=== PATIENT | male | born 1975 | race Caucasian/White ===

== ENCOUNTER 2023-05-09 18:40 | Emergency (ER) | payer OTHER, SELFPAY ==
[2023-05-09 18:42] VITALS: BP 140/90; PULSE 86; TEMP 36.7; O2SAT 100; BMI 25.7
--- NOTE | 2023-05-09 19:06 | CT_ITS ---
The [address] [address] Patient Name: RUFINO JOHN MRN: [id number] date: 1975 Sex: M Assigned Patient Location: ER Current Patient Location: ER Accession/Order Number: [id number] Exam Date: 05/09/2023 19:27 Report Date: 05/09/2023 20:05 At the request of: JEANA LEE Procedure: CT abdomen pelvis wo con EXAM: CT abdomen pelvis wo con CLINICAL INDICATION: left flank pain, r/o stone COMPARISON: None. TECHNIQUE: Axial CT of the abdomen, and pelvis was performed from the top of the hemidiaphragms to the inferior osseous pelvis without intravenous contrast. 2-D reformats were obtained. Automatic exposure control radiation dose reduction technology was utilized. FINDINGS: Evaluation is limited by lack of intravenous contrast. Visualized portion of the lung bases are unremarkable. Hypoattenuating hepatic lesions, some of which are compatible with simple cysts and others which are too small to accurately characterize. 1.1 cm proximal to mid left ureteral calculus with associated moderate left hydroureteronephrosis. The spleen, right kidney, adrenal glands and pancreas are unremarkable. Gallbladder present. No abdominal aortic aneurysm. Borderline enlarged left sided mesenteric lymph node measures up to 0.9 cm, likely reactive. No pathologically enlarged lymph nodes, free fluid, or free air. Diverticulosis coli without evidence for diverticulitis. The bowel is without evidence of obstruction or adjacent inflammatory changes. Bladder unremarkable. No suspicious osseous lesions. CT/CT abdomen pelvis wo con IMPRESSION: 1.1 cm proximal to mid left ureteral calculus with associated moderate left hydroureteronephrosis. Electronically authenticated by: PEDRO CRUZ Date: 05/09/2023 20:05
--- NOTE | 2023-05-09 19:06 | ED_ITS ---
HPI - Male Genitourinary General Chief complaint: Abdominal Pain Stated complaint: Flank Pain, Hx-Kidney Stones Time Seen by Provider: 05/09/23 18:58 Source: patient Mode of arrival: walk-in History of Present Illness HPI Narrative: 48-year-old male presents for left flank pain that has had for a week. He has had kidney stones twice before and it feels similar. No gross hematuria fever or vomiting. The pain is moderate to severe and continuous. Related Data Home Medications ?Medication ?Instructions ?Recorded ?Confirmed No Known Home Medications 05/09/23 05/09/23 Previous Rx's ?Medication ?Instructions ?Recorded cephalexin 500 mg capsule 500 mg PO TID 7 days #21 caps 05/09/23 hydrocodone 5 mg-acetaminophen 325 1 tab PO Q6H PRN pain 5 days #20 05/09/23 mg tablet tabs ondansetron 4 mg disintegrating 4 mg PO Q6H PRN nausea and 05/09/23 tablet vomiting #20 tabs tamsulosin 0.4 mg capsule (Flomax) 0.4 mg PO DAILY #7 caps 05/09/23 Allergies Allergy/AdvReac Type Severity Reaction Status Date / Time No Known Drug Allergies Allergy Verified 05/09/23 18:46 Review of Systems ROS Narrative A ten point review of systems is negative except as noted above. Exam Narrative Exam Narrative: Nurses note and vital signs reviewed and patient is not hypoxic. General: The patient appears uncomfortable and he is laying on his right side with his hips and knees flexed. Skin: Warm, dry, no pallor noted. There is no rash noted. Head: Normocephalic, atraumatic Eye: Normal conjunctiva, no drainage Ears, Nose, Mouth, and Throat: oral mucosa is moist. Nares patent. Cardiovascular: Regular Rate and Rhythm Respiratory: Patient is in no distress, no accessory muscle use, lungs are clear to auscultation, no wheezing, rales or rhonchi Back: No bruise rash or CVA tenderness GI: no tenderness to palpation, no masses appreciated. No rebound, guarding, or rigidity noted. Musculoskeletal: The patient has no evidence of calf tenderness, no pitting edema, symmetrical pulses noted bilaterally Neurological: A&O, normal speech Psychiatric: Cooperative Constitutional Vital Signs, click to edit/add: Last Vital Signs Temp 98.0 F 05/09/23 18:42 Pulse 64 05/09/23 19:37 Resp 16 05/09/23 19:37 BP 112/84 05/09/23 19:37 Pulse Ox 98 05/09/23 19:37 O2 Del Method Room Air 05/09/23 19:37 Course Vital Signs Vital signs: Vital Signs Temperature 98.0 F 05/09/23 18:42 Pulse Rate 86 05/09/23 18:42 Respiratory Rate 18 05/09/23 18:42 Blood Pressure 140/90 05/09/23 18:42 Pulse Oximetry 100 05/09/23 18:42 Oxygen Delivery Method Room Air 05/09/23 18:42 Temperature 98.0 F 05/09/23 18:42 Pulse Rate 64 05/09/23 19:37 Respiratory Rate 16 05/09/23 19:37 Blood Pressure 112/84 05/09/23 19:37 Pulse Oximetry 98 05/09/23 19:37 Oxygen Delivery Method Room Air 05/09/23 19:37 MDM - Male Genitourinary MDM Narrative Medical decision making narrative: 11 mm left ureteral stone is found on CAT scan per radiologist. He does not require admission to the hospital at this point and is discharged home. He will follow-up with his urologist. Treatment diagnosis and follow-up were discussed with the patient. Differential Diagnosis Differential diagnosis: Likely urinary tract infection and other (Kidney stone) Lab Data Attestation: I reviewed the patient's lab results. Labs: Lab Results 05/09/23 05/09/23 Range/Units 18:50 20:19 WBC 8.1 (4.0-11.0) 10^3/uL RBC 5.21 (4.70-6.10) 10^6/uL Hgb 16.0 (14.0-18.0) g/dL Hct 47.6 (42.0-54.0) % MCV 91.4 (80.0-94.0) fL MCH 30.7 (25.9-34.0) pg MCHC 33.6 (29.9-35.2) g/dL RDW 11.9 (11.0-15.0) % Plt Count 293 (150-450) 10^3/uL MPV 10.6 (9.5-13.5) fL Neut % (Auto) 67.2 (43.0-75.0) % Lymph % (Auto) 23.8 (20.5-60.0) % [place] % (Auto) 8.0 (1.7-12.0) % Eos % (Auto) 0.6 L (0.9-7.0) % Baso % (Auto) 0.2 (0.2-2.0) % Neut # (Auto) 5.4 (1.4-6.5) 10^3/uL Lymph # (Auto) 1.9 (1.2-3.8) 10^3/uL [place] # (Auto) 0.7 (0.3-0.8) 10^3/uL Eos # (Auto) 0.1 (0.0-0.7) 10^3/uL Baso # (Auto) 0.0 (0.0-0.1) 10^3/uL Abs Immat Gran (auto) 0.02 (0.00-0.03) 10^3/uL Imm/Tot Granulo (auto) 0.2 (0.0-0.5) % Sodium 138 (136-145) mmol/L Potassium 3.7 (3.5-5.1) mmol/L Chloride 102 (98-107) mmol/L Carbon Dioxide 25.1 (21.0-32.0) mmol/L Anion Gap 14.6 BUN 14.0 (7.0-18.0) mg/dL Creatinine 0.96 (0.70-1.30) mg/dL Est GFR ( Amer) >60 (>=60) Est GFR (Non-Af Amer) >60 (>=60) BUN/Creatinine Ratio 14.6 Glucose 86 (74-106) mg/dL Calcium 9.2 (8.5-10.1) mg/dL Urine Color Yellow (YELLOW) Urine Clarity Clear (CLEAR) Urine pH 5.5 (5.0-9.0) Ur Specific [place] >=1.030 A (1.005-1.025) Urine Protein Negative (NEG/TRACE) mg/dL Urine Glucose (UA) Negative (NEGATIVE) mg/dL Urine Ketones 40 A (NEGATIVE) mg/dL Urine Occult Blood Trace-i (NEGATIVE) Urine Nitrite Negative (NEGATIVE) Urine Bilirubin Small A (NEGATIVE) Urine Urobilinogen 0.2 (0.2-1.0) EU/dL Ur Leukocyte Esterase Trace A (NEGATIVE) Urine RBC 0-2 (0-2) #/HPF Urine WBC 2-5 A (NONE SEEN) #/HPF Ur Squamous Epith Cells None seen (NONE/RARE) #/LPF Urine Crystals None seen (None Seen) #/HPF Urine Bacteria Small A (NONE SEEN) #/HPF Urine Casts None seen (NONE SEEN) #/LPF Urine Mucus Moderate A (NONE SEEN) Ur Culture Indicated? Yes Imaging Data CT scan - abdomen: Radiologist's impression: ITS Impressions Abdomen/Pelvis CT 05/09/23 19:06 IMPRESSION: 1.1 cm proximal to mid left ureteral calculus with associated moderate left hydroureteronephrosis. Electronically authenticated by: PEDRO CRUZ Date: 05/09/2023 20:05 Discharge Plan Discharge Stand Alone Forms: Portal Instructions Chief Complaint: Abdominal Pain Clinical Impression: Kidney stone Patient Disposition: Home, Self-Care Time of Disposition Decision: 20:47 Condition: Good Mode of Transportation: Private Vehicle Prescriptions / Home Meds: New hydrocodone-acetaminophen 5-325 mg tablet 1 tab PO Q6H PRN (Reason: pain) 5 Days Qty: 20 0RF cephalexin 500 mg capsule 500 mg PO TID 7 Days Qty: 21 0RF tamsulosin [Flomax] 0.4 mg capsule 0.4 mg PO DAILY Qty: 7 0RF ondansetron 4 mg tablet,disintegrating 4 mg PO Q6H PRN (Reason: nausea and vomiting) Qty: 20 0RF No Action No Known Home Medications Print Language: Yemeni Instructions: Kidney Stones (ED) Additional Instructions: Follow-up with Dr. Hobbs Referrals: Timothy Linares MD [Primary Care Provider] - 1 week
[2023-05-09] MEDS: 0.9 % SODIUM CHLORIDE 1,000 ML 1000 ML IV (19:10)
[2023-05-09] MEDS: KETOROLAC TROMETHAMINE 30 MG/ML VIAL IVP (19:11)
[2023-05-09] MEDS: ONDANSETRON PF 4 MG/2 ML VIAL IV (19:13)
[2023-05-09 19:37] VITALS: BP 112/84; PULSE 64; O2SAT 98
[2023-05-09 19:55] LABS: Basophils Percent Auto 0.2 % (0.2-2.0); Eosinophils Absolute Auto 0.1 10^3/uL (0.0-0.7); Eosinophils Percent Auto 0.6 % (0.9-7.0); Hematocrit 47.6 % (42.0-54.0); Immature Granulocytes Abs Auto 0.02 10^3/uL (0.00-0.03); Immature Granulocytes Pct Auto 0.2 % (0.0-0.5); Lymphocytes Absolute Auto 1.9 10^3/uL (1.2-3.8); Lymphocytes Percent Auto 23.8 % (20.5-60.0); Mean Corpuscular HGB Conc 33.6 g/dL (29.9-35.2); Mean Corpuscular Hemoglobin 30.7 pg (25.9-34.0); Mean Corpuscular Volume 91.4 fL (80.0-94.0); Mean Platelet Volume 10.6 fL (9.5-13.5); Monocytes Absolute Auto 0.7 10^3/uL (0.3-0.8); Neutrophils Absolute Auto 5.4 10^3/uL (1.4-6.5); Neutrophils Percent Auto 67.2 % (43.0-75.0); Platelet Count 293 10^3/uL (150-450); Red Blood Count 5.21 10^6/uL (4.70-6.10); Red Cell Distribution Width 11.9 % (11.0-15.0); White Blood Count 8.1 10^3/uL (4.0-11.0)
[2023-05-09 19:59] LABS: Anion Gap 14.6; BUN Creatinine Ratio 14.6; Calcium 9.2 mg/dL (8.5-10.1); Carbon Dioxide 25.1 mmol/L (21.0-32.0); Chloride 102 mmol/L (98-107); Estimated GFR (African America >60 (>=60); Estimated GFR (Non-African Ame >60 (>=60); Glucose 86 mg/dL (74-106); Potassium 3.7 mmol/L (3.5-5.1); Sodium 138 mmol/L (136-145)
[2023-05-09 20:30] LABS: Bilirubin Urine SMALL (NEGATIVE); Blood Urine TRACE-I (NEGATIVE); Clarity Urine CLEAR (CLEAR); Color Urine YELLOW (YELLOW); Glucose Urine UA NEGATIVE (NEGATIVE); Ketones Urine 40 mg/dL (NEGATIVE); Leukocyte Esterase Urine TRACE (NEGATIVE); Nitrite Urine NEGATIVE (NEGATIVE); Protein Urine NEGATIVE (NEG/TRACE); Specific Gravity Urine >=1.030 (1.005-1.025); Urobilinogen Urine 0.2 EU/dL (0.2-1.0); pH Urine 5.5 (5.0-9.0)
[2023-05-09 20:35] LABS: Urine Microscopic Indicated YES
[2023-05-09 20:37] LABS: Bacteria Urine SMALL #/HPF (NONE SEEN); Cast Seen? NONE SEEN #/LPF (NONE SEEN); Crystals Seen? None Seen #/HPF (None Seen); Mucus Urine MODERATE (NONE SEEN); RBC Urine 0-2 #/HPF (0-2); Squamous Epithelial Cell Urine NONE SEEN #/LPF (NONE/RARE)
[2023-05-09 20:38] LABS: Urine Culture Indicated YES
[2023-05-09 21:18] VITALS: BP 105/66; PULSE 65; TEMP 37; O2SAT 99
[2023-05-09] MEDS: HYDROCODONE/ACET 5-325 MG TABLET 2 TAB PO (21:31)
== END 2023-05-09 21:37 | disposition home or self-care (01) ==
PROVIDERS: Emergency Provider Emergency Medicine; PCP Family Medicine
DX: N20.0 Calculus of kidney (principal)
CPT/HCPCS: 36415; 74176; 80048; 81001; 85025; 87086; 96374; 96375; 99285

== ENCOUNTER 2023-05-13 15:00 | Outpatient (OUT) | payer OTHER, SELFPAY ==
--- NOTE | 2023-05-13 | ECG_ITS ---
The [facility] Test Date: 2023-05-13 Pat Name: RUFINO JOHN Department: Room: - Gender: Male [employer]: : 1975 Requested By: VIKTORIA SOLIS Order Number: [id number] Reading MD: ROJELIO LATIF Measurements Intervals [place] Rate: 79 P: 60 IA: 152 QRS: 83 QRSD: 84 T: 79 QT: 378 QTc: 434 Interpretive Statements SINUS RHYTHM No previous ECG available for comparison Electronically Signed On 05-14-2023 6:55:44 EDT by ROJELIO LATIF
[2023-05-13 15:42] LABS: Partial Thromboplastin Time 29.8 sec (22.3-36.2); Prothrombin Time 10.6 sec (9.0-11.6)
== END 2023-05-13 15:01 | disposition home or self-care (01) ==
LOC: CARD 15:01
PROVIDERS: PCP Family Medicine; Visit Provider Urology
DX: N20.1 Calculus of ureter (principal); N13.30 Unspecified hydronephrosis; R10.32 Left lower quadrant pain
CPT/HCPCS: 36415; 85610; 85730; 93005

== ENCOUNTER 2023-05-22 16:05 | Outpatient (OUT) | payer OTHER, SELFPAY ==
--- NOTE | 2023-05-22 16:12 | XR_ITS ---
The [address] [address] Patient Name: RUFINO JOHN MRN: [id number] date: 1975 Sex: M Assigned Patient Location: [facility] Current Patient Location: Accession/Order Number: [id number] Exam Date: 05/22/2023 16:18 Report Date: 05/25/2023 07:24 At the request of: VIKTORIA SOLIS Procedure: XR abdomen 1V EXAMINATION: XR abdomen 1V HISTORY: Kidney Stone N20.0 COMPARISON: 05/09/2023 FINDINGS: KIDNEY/URETER - RIGHT: No visible renal or ureteral calcifications. KIDNEY/URETER - LEFT: Nephrolithiasis. Normally positioned ureteral stent PELVIS: No visible ureteral calcifications. Any visible calcifications favor phleboliths. BOWEL: No abnormal dilation or deviation. BONES: No acute abnormality. OTHER: Negative. No abnormal gaseous collections. XR/XR abdomen 1V IMPRESSION: Left nephrolithiasis and ureteral stent Electronically authenticated by: IRMA MUÑIZ Date: 05/25/2023 07:24
== END 2023-05-22 16:06 | disposition home or self-care (01) ==
PROVIDERS: PCP Family Medicine; Visit Provider Urology
DX: N20.0 Calculus of kidney (principal)
CPT/HCPCS: 74018

== ENCOUNTER 2023-08-17 09:50 | Outpatient (OUT) | payer OTHER, SELFPAY ==
[2023-08-17 10:50] LABS: Calcium 9.1 mg/dL (8.5-10.1); Carbon Dioxide 28.5 mmol/L (21.0-32.0); Chloride 104 mmol/L (98-107); Estimated GFR (African America >60 (>=60); Estimated GFR (Non-African Ame >60 (>=60); Phosphorus 4.3 mg/dL (2.6-4.7); Sodium 141 mmol/L (136-145); Uric Acid 4.4 mg/dL (3.5-7.2)
[2023-08-17 11:23] LABS: Calcium Urine Random 17.8 mg/dL (5.1-21.0); Creatinine Urine Random 77.88 mg/dL (20.00-300.00); Sodium Urine Random 80 mmol/L (30-90)
[2023-08-17 11:26] LABS: Calcium 24 Hour Urine 378.3 mg/24hr (100.0-300.0); Creatinine 24 Hour Urine 1654.95 mg/24 hr (1000.0-2000.00); Sodium 24 Hour Urine 170 mmol/24h (40-220); Total Volume 24 Hour Urine 2125 mL/24hr
[2023-08-18 04:07] LABS: Magnesium, U 4.2 mg/dL (Not Estab.); Magnesium,Urine 24hr 89.3 mg/24 hr (12.0-293.0); Phosphorus, Urine 28.9 mg/dL (Not Estab.); Phosphorus,Urine 24h 614 mg/24 hr (390-1425); Uric Acid, Urine 20.1 mg/dL (Not Estab.); Uric Acid,Urine 24hr 427.1 mg/24 hr (197.2-1078.7)
[2023-08-18 14:13] LABS: PTH, Intact 23 pg/mL (15-65)
[2023-08-19 17:09] LABS: Citric Acid, U, 24hr 514 mg/24 hr (320-1240); Citric Acid, Urine 242 mg/L (Undefined); Oxalates, Urine 7 mg/L (Undefined); Oxalates, Urine 24hr 15 mg/24 hr (7-44)
== END 2023-08-17 09:51 | disposition home or self-care (01) ==
LOC: LAB 09:50
PROVIDERS: PCP Family Medicine; Visit Provider Urology
DX: N20.0 Calculus of kidney (principal)
CPT/HCPCS: 36415; 82310; 82340; 82374; 82435; 82507; 82565; 82570; 83735; 83945; 83970; 84100; 84105; 84295; 84300; 84520; 84550; 84560

== ENCOUNTER 2023-09-02 08:21 | Outpatient (OUT) | payer OTHER, SELFPAY ==
--- NOTE | 2023-09-02 08:26 | XR_ITS ---
The [address] [address] Patient Name: RUFINO JOHN MRN: [id number] date: 1975 Sex: M Assigned Patient Location: [facility] Current Patient Location: Accession/Order Number: [id number] Exam Date: 09/02/2023 08:30 Report Date: 09/03/2023 07:06 At the request of: VIKTORIA SOLIS Procedure: XR abdomen 1V EXAMINATION: XR abdomen 1V HISTORY: Kidney Stone N20.0 COMPARISON: 05/22/2023 FINDINGS: KIDNEY/URETER - RIGHT: No visible renal or ureteral calcifications. KIDNEY/URETER - LEFT: No visible renal or ureteral calcifications. PELVIS: No visible ureteral calcifications. Any visible calcifications favor phleboliths. BOWEL: No abnormal dilation or deviation. BONES: No acute abnormality. OTHER: Negative. No abnormal gaseous collections. XR/XR abdomen 1V IMPRESSION: No definite urinary tract calculi Electronically authenticated by: IRMA MUÑIZ Date: 09/03/2023 07:06
== END 2023-09-02 08:22 | disposition home or self-care (01) ==
LOC: RAD 08:22
PROVIDERS: PCP Family Medicine; Visit Provider Urology
DX: N20.0 Calculus of kidney (principal)
CPT/HCPCS: 74018

== ENCOUNTER 2023-10-16 14:29 | Outpatient (OUT) | payer OTHER, SELFPAY ==
[2023-10-16 16:35] LABS: Anion Gap 10.2; Carbon Dioxide 28.9 mmol/L (21.0-32.0); Chloride 103 mmol/L (98-107); Potassium 4.1 mmol/L (3.5-5.1); Sodium 138 mmol/L (136-145)
== END 2023-10-16 14:30 | disposition home or self-care (01) ==
PROVIDERS: PCP Family Medicine; Visit Provider Urology
DX: N20.0 Calculus of kidney (principal); R82.994 Hypercalciuria
CPT/HCPCS: 36415; 80051

== ENCOUNTER 2024-06-24 19:00 | Emergency (ER) | payer OTHER, SELFPAY ==
[2024-06-24 19:05] VITALS: BP 144/95; PULSE 88; TEMP 37.1; O2SAT 99; BMI 24.4
--- NOTE | 2024-06-24 19:26 | ED_ITS ---
HPI HPI - General Adult General Chief complaint: Abdominal Pain Stated complaint: constipated Time Seen by Provider: 06/24/24 19:21 Source: patient Mode of arrival: walk-in Limitations: no limitations History of Present Illness HPI narrative: presents complaining of constipation. States did have BM today but very small. No nausea or vomiting. Occ abdominal cramping. No urinary symptoms or fever. States he has past history of kidney stones and adjusted his diet and believes this is why he is constipated Related Data Home Medications ?Medication ?Instructions ?Recorded ?Confirmed No Known Home Medications 05/09/2306/09 Previous Rx's ?Medication ?Instructions ?Recorded cephalexin 500 mg capsule 500 mg PO TID 7 days #21 cap s 05/09/23 hydrocodone 5 mg-acetaminophen 325 1 tab PO Q6H PRN pa in 5 days #20 05/09/23 mg tablet tabs ondansetron 4 mg disintegrating 4 mg PO Q6H PRN nausea and 05/09/23 tablet vomiting #20 tabs tamsulosin 0.4 mg capsule (Flomax) 0.4 mg PO DAILY #7 caps 05/09/23 Allergies Allergy/AdvReac Type Severity Reaction Status Date / Time No Known Drug Allergies Allergy Verified 06/24/24 19:08 Opioid HPI Opioid Management Most Recent Opioid Data: Last Pain Scale 5 05/09/23, 19:38 Review of Systems ROS Status of ROS 10 or more systems reviewed and unremark able except as noted in history and below Exam Constitutional Vital Signs, click to edit/add: Last Vital Signs Temp 98.8 F 06/24/24 19:05 Pulse 88 06/24/24 19:05 Resp 16 06/24/24 19:05 BP 144/95 H 06/24/24 19:05 Pulse Ox 99 06/24/24 19:05 O2 Del Method Room Air 06/24/24 19:05 Common normals: no apparent distress, average body habitus, oriented x3, no limitations, healthy appearing, alert and well nourished [facility] Common normals: normocephalic and head/scalp atraumatic Eye Common normals: PERRL, EOMs intact bilaterally and conjunctivae normal Respiratory Common normals: normal respiratory effort, no retractions, no use of accessory muscles and clear to auscultation bilaterally Cardio Common normals: regular rate, regular rhythm, S1 normal heart sound and S2 n ormal heart sound GI Common normals: Normal to inspection, nondistended, normoactive bowel sounds present, soft to palpation and non-tender Extremity Common normals: normal to inspection and full ROM Neuro Common normals: oriented x3, CN's II-XII intact bilaterally, moves all extremities and no focal motor deficits Psych Appearance: grossly normal Course Vital Signs Vital signs: Vital Signs Temperature 98.8 F 06/24/24 19:05 Pulse Rate 88 06/24/24 19:05 Respiratory Rate 16 06/24/24 19:05 Blood Pressure 144/95 H 06/24/24 19:05 Pulse Oximetry 99 06/24/24 19:05 Oxygen Delivery Method Room Air 06/24/24 19:05 Temperature 98.8 F 06/24/24 19:05 Pulse Rate 88 06/24/24 19:05 Respiratory Rate 16 06/24/24 19:05 Blood Pressure 144/95 H 06/24/24 19:05 Pulse Oximetry 99 06/24/24 19:05 Oxygen Delivery Method Room Air 06/24/24 19:05 Medical Decision Making MDM Narrative Medical decision making narrative: patient presents complaining of constipation. Very small BM today. No nausea or vomiting. xray abdomen confirms constipation. Given enema in the department with small response. Patient prefers to go home and use fleets enema. Also advised to purchase miralax and follow up with his doctor next week Discharge Plan Discharge Chief Complaint: Abdominal Pain Clinical Impression: Constipation Patient Disposition: Home, Self-Care Prescriptions / Home Meds: No Action No Known Home Medications hydrocodone-acetaminophen 5-325 mg tablet 1 tab PO Q6H PRN (Reason: pain) 5 Days Qty: 20 0RF cephalexin 500 mg capsule 500 mg PO TID 7 Days Qty: 21 0RF tamsulosin [Flomax] 0.4 mg capsule 0.4 mg PO DAILY Qty: 7 0RF ondansetron 4 mg tablet,disintegrating 4 mg PO Q6H PRN (Reason: nausea and vomiting) Qty: 20 0RF Print Language: Vietnamese Instructions: Constipation (ED) Additional Instructions: purchase fleet enema and miralax .Follow up with your doctor next week Referrals: Timothy Linares MD [Primary Care Provider, Family Practice] - 1 week
--- OUTSIDE RECORDS SUMMARY | 2024-06-24 19:26 | XMS_ITS | CCD ---
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 Name Role Phone Timothy Linares Primary Care Physician [phone] MD Steven Hobbs Attending Provider Steven Hobbs Admitting Unavailable Hobbs, Steven Attending Unavailable HOBBS, Steven Vale Attending Unavailable HOBBS, Steven Vale Admitting Unavailable HOBBS, Steven Vale Attending Unavailable HOBBS, Steven Vale Admitting Unavailable HOBBS, Steven Vale Attending Unavailable HOBBS, Steven Vale Attending Unavailable HOBBS, Steven Vale Attending Unavailable HOBBS, Steven Vale Attending Unavailable HOBBS, Steven Vale Admitting Unavailable HOBBS, Steven Vale Attending Unavailable HOBBS, Steven Vale Referring Unavailable HOBBS, Steven Vale Attending Unavailable HOBBS, Steven Vale Attending Unavailable Allergies Allergy Classification Reported Allergen(s) Allergy Type Date of Onset Reaction(s) Facility (2 sources) No Known Medication Allergies; Translations: [No Known Medication Allergies] Propensity to adverse reactions (disorder) [facility] Repository Medications Current Medications Medication Drug Class(es) Dates Sig (Normalized) Sig (Original) hydroCHLOROthiazide 12.5 mg oral capsule (1 source) Thiazide Diuretic Start: 09-09-19 End: 09-04-19 25 take 1 capsule by mouth once daily hydrochlorothiazide 12.5 mg Cap 12.5 mg = 1 cap(s), Oral, Daily, X 30 day(s), # 30 cap(s), Refills(s) 11, Pharmacy: [id number], 176, cm, 09/09/23 15:09:00 EDT, Height/Length Dosing, 83.9, kg, 09/09/23 15:09:00 EDT, Weight Dosing Start Date: 09/09/23 Stop Date: 09/03/24 Status: Ordered ketorolac tromethamine 10 mg oral tablet (3 sources) Nonsteroidal Anti-inflammatory Drug, Cyclooxygenase Inhibitor Start: 05-13-19 End: 06-12-19 take 1 tablet by mouth four times daily as needed for pain ketorolac 10 mg Tab 10 mg = 1 tab(s), Oral, QID, PRN for pain, # 20 tab(s), Refills(s) 0, Pharmacy: [id number], 176, cm, 05/13/23 9:15:00 EDT, Height/Length Dosing, 83.9, kg, 05/13/23 9:15:00 EDT, Weight Dosing Start Date: 05/13/23 Stop Date: 06/12/23 Status: Ordered solifenacin succinate 10 mg oral tablet (1 source) Cholinergic Muscarinic Antagonist Start: 05-14-19 take 1 tablet by mouth once daily Vesicare 10 mg Tab 10 mg = 1 tab(s), Oral, Daily, # 30 tab(s), Refills(s) 1, Pharmacy: [id number], 178, cm, 05/14/23 14:35:00 EDT, Height/Length Dosing, 86.2, kg, 05/14/23 14:35:00 EDT, Weight Dosing Start Date: 05/14/23 Status: Ordered tamsulosin hydrochloride 0.4 mg oral capsule (5 sources) alpha-Adrenergic Haydee Start: 05-13-19 take 1 capsule by mouth once daily Flomax 0.4 mg Cap 0.4 mg = 1 cap(s), Oral, Daily Start Date: 05/13/23 Status: Ordered Problems Problem Classification Problem Date Documented Date Episodic/Chronic Abdominal pain (7 sources) Abdominal pain; Translations: [Unspecified abdominal pain] Onset: 05-13-2023 Episodic Calculus of urinary tract (15 sources) History of calculus of kidney; Translations: [Personal history of urinary calculi] Onset: 05-13-2023 Episodic Genitourinary symptoms and ill-defined conditions (2 sources) Hypercalciuria; Translations: [Hypercalciuria] Onset: 09-09-2023 Episodic Other diseases of kidney and ureters (1 source) Urinary tract obstruction; Translations: [Hydronephrosis with renal and ureteral calculous obstruction] Onset: 05-13-2023 Episodic Other diseases of kidney and ureters (1 source) Hydronephrosis with renal and ureteral calculous obstruction; Translations: [Hydronephrosis with renal and ureteral calculous obstruction] Onset: 05-20-2023 Episodic Other injuries and conditions due to external causes (1 source) Foreign body in bladder; Translations: [Foreign body in bladder, initial encounter] Onset: 05-26-2023 Episodic Substance-related disorders (5 sources) Smoker 05-14-2023 Chronic Comment on above: Added secondary to d ocumentation in Social History. Unclassified (6 sources) Obstructive hydronephrosis 05-13-2023 Results Test Name Value Interpretation Reference Range Facility Ambulatory Visit Summaryon 0 09-09-2023 Ambulatory Visit Summary Ambulatory Visit Summary VON LOJA :1975 Visit Date:09/09/2023 Ambulatory Visit Instructions Your Diagnosis Kidney stone Hypercalciuria History of kidney stones Tests Performed XR Abdomen 1 View -- Results Pending -- Please visit your patient portal for your results or contact your primary care physician. Your Care Team Attending Physician - Steven HOBBS MD Primary Care Physician - Timothy Linares MD This Is Your Medications List hydrochlorothiazide (hydrochlorothiazide 12.5 mg Cap) Procedures Performed Cystoscopy (05/26/2023), Removal of stent (05/26/2023), Ureteroscopy (05/14/2023), Appendectomy, Arthroscopy, knee, surgical; abrasion arthroplasty (includes chondroplasty where necessary) or multiple drilling or microfracture. Discharge Vitals Temperature (Temporal Artery) 36 ?C Heart Rate (Peripheral) 64 Blood Pressure 126/68 Height 176 cm Height 69 in Weight 83.9 kg Weight 184.58 lb BMI 27.09 What to do next Scheduled Follow-Up Appointments Thursday 3:00 PM EDT With: Steven HOBBS MD Where: [facility] [address] [place] [address]- You Need to Schedule the Following Appointments Follow Up with Steven HOBBS MD, URL When: Where: [facility] [address] , [place] [address]- Medications What How Much When Instructions New hydrochlorothiazide (hydrochlorothiazide 12.5 mg Cap) 1 Capsules By Mouth Every day Duration: 30 Days Refills: 11 Pickup at [facility] Pharmacy Information [id number]: [address] [place] [id number] [phone] Allergies No Known Medication Allergies Problems Ongoing - Any problem that you are currently receiving treatment for. History of kidney stones Hypercalciuria Kidney stone Left flank pain Smoker Ureteral stone with hydronephrosis Patient Survey You may receive a survey via text or e-mail asking about your office visit. Please share your experience with us by completing your survey. We appreciate your feedback and thank you for choosing us for your care. Education Materials Dietary Guidelines to Help Prevent Kidney Stones Kidney stones are deposits of minerals and salts that form inside your kidneys. Your risk of developing kidney stones may be greater depending on your diet, your lifestyle, the medicines you take, and whether you have certain medical conditions. Most people can lower their risks of developing kidney stones by following these dietary guidelines. Your dietitian may give you more specific instructions depending on your overall health and the type of kidney stones you tend to develop. What are tips for following this plan? Reading food labels ? Choose foods with no salt added or low-salt labels. Limit your salt (sodium) intake to less than 1,500 mg a day. ? Choose foods with calcium for each meal and snack. Try to eat about 300 mg of calcium at each meal. Foods that contain 200?500 mg of calcium a serving include: ? 8 oz (237 mL) of milk, gurqyhy-xhltglbqwidd-c airy milk, and calcium-fortifiedfruit juice. Calcium-fortified means that calcium has been added to these drinks. ? 8 oz (237 mL) of kefir, yogurt, and soy yogurt. ? 4 oz (114 g) of tofu. ? 1 oz (28 g) of cheese. ? 1 cup (150 g) of dried figs. ? 1 cup (91 g) of cooked broccoli. ? One 3 oz (85 g) can of sardines or mackerel. Most people need 1,000?1,500 mg of calcium a day. Talk to your dietitian about how much calcium is recommended for you. Shopping ? Buy plenty of fresh fruits and vegetables. Most people do not need to avoid fruits and vegetables, even if these foods contain nutrients that may contribute to kidney stones. ? When shopping for convenience foods, choose: ? Whole pieces of fruit. ? Pre-made salads with dressing on the side. ? Low-fat fruit and yogurt smoothies. ? Avoid buying frozen meals or prepared deli foods. These can be high in sodium. ? Look for foods with live cultures, such as yogurt and kefir. ? Choose high-fiber grains, such as whole-wheat breads, oat bran, and wheat cereals. Cooking ? Do not add salt to food when cooking. Place a salt shaker on the table and allow each person to add their own salt to taste. ? Use vegetable protein, such as beans, textured vegetable protein (TVP), or tofu, instead of meat in pasta, casseroles, and soups. Meal planning ? Eat less salt, if told by your dietitian. To do this: ? Avoid eating processed or pre-made food. ? Avoid eating fast food. ? Eat less animal protein, including cheese, meat, poultry, or fish, if told by your dietitian. To do this: ? Limit the number of times you have meat, poultry, fish, or cheese each week. Eat a diet free of meat at least 2 days a week. ? Eat only one se (more content not included)... Normal [facility] Provider Letteron 09-09-2023 Provider Letter Provider Letter September 09, 2023 VON LOJA [address] [place] [id number] : 1975 To Whom It May Concern, Please excuse above patient from work. Date of Illness: From: 09/09/2023 To: 09/09/2023 May Return to Work On: 09/10/2023 Restrictions: None Comments: Patient had an appointment with Dr. Hobbs on 09/09/23. Sincerely, [facility] Urology Office/Clinic Noteon 09-09-2023 Urology Office/Clinic Note Urology Office/Clinic Note Chief Complaint 3 month follow up w/ KUB and metabolic workup HPI Staff Von is a 48 y.o. male here for 3 month follow up w/ KUB & met work up. Previous Dx: kidney stones, ureteral stone. S/P ureteroscopy 4/4/24, stent removal 05/26/23. Dysuria: denies pain and burning Incomplete bladder emptying: denies Hematuria: denies visible blood Frequency: denies Urgency: denies Nocturia: denies Stream: denies hesitancy Leaking: denies Post void dripping: denies Wearing pads/ Depends: denies Urge incontinence: denies Stress incontinence: denies Incontinence without Sensory Awareness: denies Abdominal pain: denies Flank pain: some back pain, unsure if kidney related Sexual complaints: _ History of Present Illness Tests reviewed: reviewed UA, KUB, met workup. I have reviewed the previous health record information and history for this patient from Dr. Hobbs. I have reviewed and verified the staff HPI to be accurate for this encounter. Review of Systems PHQ Score Initial Depression Screen Score: 0 SCORE ROS - Provider Constitutional: denies weight loss, denies hot flashes. Eyes: denies eye problems. Gastrointestinal: denies nausea, denies vomiting. Cardiovascular: denies chest pain or angina. Integumentary: no dryness Musculoskeletal: denies musculoskeletal symptoms. ENMT: denies otolaryngeal symptoms. Respiratory: no shortness of breath. Heme/Lymph: denies easy bleeding tendency, denies easy bruising tendency. Psychiatric: no confusion, no anxiety. Genitourinary: See HPI. Physical Exam Vitals & Measurements T: 36 ?C(Temporal Artery) HR: 64(Peripheral) BP: 126/68 HT: 69 in HT: 176 cm WT: 83.9 kg WT: 184.58 lb BMI: 27.09 General Appearance: alert, no distress, well nourished, well developed male. Assessment/Plan 1. Kidney stone (N20.0: Calculus of kidney) CT AP wo con 05/09/23 [facility] - 1.1 cm proximal to mid L ureteral stone with associated moderate L hydroureteronephrosis. S/p Cysto/L stent placement 05/14/23. S/p Cysto/L stent change/L URS/laser litho of large left ureteral calculus/basket extraction 05/20/23. Stone analysis 90% [place] Ca Ox, 10% Di. KUB 05/22/23 [facility] - Left renal stone kimberly (no size on report). Personal review: tiny flecks in left kidney. KUB 09/02/23 [facility] - Neg. UA today negative for blood and infection. IPSS 7. Reviewed xray with pt. Follow up 1 yr KUB and repeat met workup or sooner if needed. Pt understands and agrees with plan. 2. Hypercalciuria (R82.994: Hypercalciuria) Metabolic workup 08/17/23 - Volume 2,125 cc L. U24 Ca 378 H. U24 citric acid 514 (320-1240). Reviewed met workup with pt. Recommended pt to increase fluid intake to ten to twelve 16 oz bottles a day, preferably water, clear pop, and sugar free lemonade. Pt also sweats a lot, he must compensate for this with more fluids as well. -Start HCTZ 12.5 mg qd. SEs discussed. Rx sent to [facility]. -D/c stone prevention supplement. -Electrolyte panel in one month. -Increase fluid intake. 3. History of kidney stones (Z87.442: Personal history of urinary calculi) Three stone episodes in his life. Follow-up With When Contact Information WILL CRUM, Steven Vale, [facility] [address], [place] [address]- Additional Instructions: 1 yr KUB and repeat met workup Patient Education Dietary Guidelines to Help Prevent Kidney Stones I, Meghann Hanna, personally scribed for Dr. Hobbs on 09/09/2023 16:04:53. . Documentation recorded by the scribe, Meghann Hanna, accurately reflects the services(s) I performed and decisions made by me. Authenticated by Dr. Hobbs on 09/09/2023 16:08:12. Problem List/Past Medical History Ongoing History of kidney stones Hypercalciuria Kidney stone Left flank pain Smoker Ureteral stone with hydronephrosis Historical No qualifying data Procedure/Surgical History Cystoscopy (05/26/2023), Removal of stent (05/26/2023), Ureteroscopy (05/14/2023), Appendectomy, Arthroscopy, knee, surgical; abrasion arthroplasty (includes chondroplasty where necessary) or multiple drilling or microfracture. Medications No active medications Allergies No Known Medication Allergies Social History Tobacco Former smoker, quit more than 30 days ago Tobacco Use:. Never Smokeless Tobacco Use:. Cigarettes, 09/09/2023 Family History Diabetes: Grandparent. Primary malignant neoplasm of female breast: Mother. Immunizations Vaccine Date Status Comments influenza virus vaccine, inactivated - Not Given Patient Refuses SARS-CoV-2 mRNA (tocieloeran 5y-11y) vac - Not Given Patient Refuses Lab Results Ambulatory Point of Care Results Bilirubin Urine Dipstick: Negative (09/09/23 15:01:00) Blood Urine Dipstick: Negative (09/09/23 15:01:00) Glucose Urine Dipstick: Negative (09/09/23 15:01:00) Ketones Urine Dipstick: Negative (09/09/23 15:01:00) Leukocytes Uri (more content not included)... Normal [facility] Comment on above: Result Comment: Elec tronically Signed By: Steven HOBBS MD\.br\Date and Time Signed: 09/09/23 16:08 EDT\.br\Electronically Co-Signed By: Meghann Hanna\.br\Date and Time Co-Signed: 09/09/23 16:05 EDT Calculus Analysison 07-28-19 Calcium oxalate dihydrate Infrared spectroscopy (Stone) [Mass fraction] 20 % Invalid Interpretation Code [facility] Comment on above: Performed By: #### 1 [id number] #### [facility] [address] [place] [address] Calcium oxalate monohydrate (Stone) [Mass fraction] 80 % Invalid Interpretation Code [facility] Comment on above: Performed By: #### 1 [id number] #### [facility] [address] [place] [address] Color (Stone) Hidalgo Invalid Interpretation Code [facility] Comment on above: Performed By: #### 1 [id number] #### [facility] [address] [place] [address] Composition Comment Invalid Interpretation Code [facility] Comment on above: Result Comment: Perc entage (Represents the % composition) Performed By: #### 1 [id number] #### [facility] [address] [place] [address] Disclaimer: Comment Invalid Interpretation Code [facility] Comment on above: Result Comment: This test was developed and its performance characteristics determined by [facility]. It has not been cleared or approved by the Food and Drug Administration. Performed at: [address] [id number] PhD Pita Marquesa Performed By: #### 1 [id number] #### [facility] [address] [place] [address] Laboratory comment Ned (Report) Comment Invalid Interpretation Code [facility] Comment on above: Result Comment: Phys yarelisan questions regarding Calculi Analysis contact [facility] at: [phone]. Performed By: #### 1 [id number] #### [facility] [address] [place] [address] Please Note: Comment Invalid Interpretation Code [facility] Comment on above: Result Comment: Calc indigo report will follow via computer, mail or vision impaired teacher delivery. Performed By: #### 1 [id number] #### [facility] [address] [place] [address] Size (Stone) [Entitic vol] 4x3 [address] [facility] Comment on above: Result Comment: Vince le piece received. Performed By: #### 1 [id number] #### [facility] [address] [place] [address] Specimen source subject Nom Comment Invalid Interpretation Code [facility] Comment on above: Result Comment: Not provided Performed By: #### 1 [id number] #### [facility] [address] [place] [address] Stone Photo Comment Invalid Interpretation Code [facility] Comment on above: Result Comment: Phot ograph will follow under a separate cover Performed By: #### 1 [id number] #### [facility] [address] [place] [address] Weight (Stone) 14 mg Invalid Interpretation Code [facility] Comment on above: Performed By: #### 1 [id number] #### [facility] [address] [place] [address] Coding Summary.on 07-28-2023 Coding Summary. QFAYUhqt11IIn3kMh+PG hl YWQ+VC5LLUGdV13tcMQkeK 6uS1ATOMcSDuigAKIJTHvJ SvNfwrJcMO1hvIZsOTPp IC8+PX8kBPMzDdtjkJFcg5 K2jYA2F81ixg9xEFnyvFD5 XMOdEbHcyiivy2acuJo3JA cuNmluOyBt XZLccV02FHC7wK54Ae72yR EbgZYvo4lfoXn2PzEoNBKd HFE1sDknUZvgd1WrXAYdQ1 8cxOBla8F3 COUwoOqolQLyNoNgrWM5hZ 3tHBfkrwmyh5idevulNfv7 fh39hGNzs7A9qJU3O9Gpwj F7EBDyrAAj WxrjfQNNxR5ynyesy2nbgi fjWfFeMRPhPXx1TYb4HCZj dLswHfBgVR98WIV4KECnxh KxA6VyYDFf nSzgAdZ2q1Q8We3WX7KNMa fhW4FYGUWMTDrjoSM+PC90 fm09L3WyBkekXgp1OFOjLJ C0uAJ3rH6l DFNzFMqnl0U1pPX1H4Rekh Ioph9gw4iiTSCaIWyrN85f yRKcj3D0XBUodXE0STZobB kiXnJldW83 Oyc+NSWvcGfos2XjSqebq5 dwd2izqOt1OdqvRDHcylSh lUevQHZ7g6FlNd9oLPYceM U8xRL8rD4n IlEqKuM4BNsnI300DuHasD OlSiudV89fR2EreWW+PHRy Uup3PUIdgXkhLN6zI3QeOO RpbmctbGVm zVelCP9iMOEbvbxnJSAaeH 3dKUGsG8k0MwVoFhV7PObr M9YvVVEhkmewQy64aP7oOx UqIvR5ZKap G6FuvcZ8NTFbqGKvALnwRM M4H50re2O9GTVaKYLcQMK6 sCQ8kV2odCewotwjgWOfaK sgdmVydGlj KMldUMkjP813KBEpdEikLj NvZGluZyBEYXRlOiAgMDYv MTgvMjAyNDwvdGQ+PHRkIH R2kRbuIEGb sPJuHRnrYh7gePijdEhlTW 8fSOVknaewCZGdfE4uBUTi mVIiuKesVZ6mUXDznfqre3 73EgFlMYX4 FCYhhKIbV2GttN1zLpCkKH BnZODfX1OgcNVbNBtuG931 VAnsLuW1JSQgqiPoK4WdLW FsaWduOiB0 j3T0Te0Qe2YmgztgF8KtlX JhUqStItclJTl5F6TvKzty dHI+UN82OELqEB04CWp2YV W6uNchROrd EVQiR5ZpvM7eLqYkPPVmAB RkOyc+PHRhYmxlIHdpZHRo RSpuLJAzJrAprRmlQJ5yDy 9yZGVyLWNv qNnkhIXmXwEhm8wnGKJcGN lnTM1mdDfsW7EyxKJ7XTAw u3h6Gr07J68zQ3AvxLK+PG AqgQM8aPD4 sM3cDtIfTrU8WVocO430Jw YenOPvHsqhp4yun7qukIk4 XbM9EUGzezVbxJvsCPS0y2 NkDs84P35g IHdpZHRoPSIxNSUiIHZhbG eqoo0ngG2xJg8+PGNvbCB3 iQV1nX0vNiObEmC5XVpeI1 49InRvcCIv Ffesd6vzu6fhwJa9RjSzKZ BfgzYznMpdPBR5n7CrNm06 C8QoaOpqe1OoPlm0fm33mM Eni3S2eEC6 Q4UsYAPdoeoohREycHxrGV 2yCAOttbakHMQdvL3jAYFz Z6s3ZhTaExG2YBxgA7Cbbq F8XUUwfILy VWOkrAGEeZ9kuemid2clag muQkCgWKZxWYb9LAl5WJHy qLxaAtGzSSR8XiK1YYH0aS LrjV5faLtl umybnX2dQtv+QDL0wBZcpC SVHD5hHqfmgEP+PHRkIHN0 cEgxMWtjCUBtlF1zWNGaC6 p8HkPyKzO0 JPpxK2FcoxU3MSVyoIIkMJ EinPSWwP9hpgmkx8nnncuf UnBfJPMeEXu7NXf1XSCrmI duOiBsZWZ0 XtL0KPV6oHXdpM4ihMdrgi iexF6wHlo+QmlydGggRGF0 VEf5T9PdLqt0IVIjpJxvKX 0ncGFkZGlu Cw0nrJdpwWnjXR2xDLFfwx snw074PqEjp9ogCOEjqEIy ZYnxOZI9P82eh3C3WEGoIF BnEIN1cAX0 rG1ytGzmilkiwMZkvSioyo TnjNumXZzqGSbvL894XVZr ePmkPhNvWSc1S3UuWta4NY OxcLwfDT8z vCHmQKfvQr5kaBbqjZsfQA 1aPEEwcgsqz784SxMwv3kl ILEqpNZrQAyyUUO0R61yh3 I6EIBuTHPm UJA3dXO3nB3vrZznqyezyS VmdDsgdmVydGljYWwtYWxp L064FKVwyVmpWrAreMx2N3 GbQhh7EXUv rNjkPI1fyZMrKFftDs5vlC pcdAbgGJ3mEQYrmupqu615 MjXbb1glWNVuiMVbTJntJT C7L29az4W8 DPAsUPInPOF7hDL5wR5kcC lnbjogbGVmdDsgdmVydGlj ZEzmWHetA980LHOxyTdaSr BhdGllbnQg LKprVJc5S0ZtOyidvMY+PC 27DVDfLD61hQUzyEOpw7vr rPm3YjJmIIAmPNO4sWxsRA aex9OdNNIm K06arLJoq0Y4QUJohEqadE HjUfNymVG3gX8yMFcepycl b1xacpyyUqrhz8rloj30lM 41W96pKFwg ZHRoPSIzMCUiIHZhbGlnbj 4ajW3sHw4+TOXrhBT6fVT0 eE9yCOPlChR0JEuvX346Vy RvcCIvPjxj e1jsb2bwsAs5GuG2JEMajv YciSiiIHK3e0OtHl01Y03p IHdpZHRoPSIyMCUiIHZhbG kjyj1gaB4j Ii8+JRXgtMC8aZK2yE7xAv LuDfG7OEruP079PbHqeQIv QdxlI35wP1EciKW+PHRyPj t9KPHofZxq VW7idGXuZKgnSi0zLFM2Yo XiWlFkQLntD1JhKZBxjuam bwmehEY5IXIeAGCftN90Yr 9udDogMTBw zBKFqI1ubjxvb6adcobtXl EeGIJlLRz4VKr7DQXxuRyl QwOzVCB9KmH0QRT2qDXutS 1hbGlnbjog pD6yI6HmJYBavmvqAl66nQ 4tGbToWeI2WXzlNsm+RUFS QIJOXSmcZbXVDXj2I5KfMj d2MCYwcFoz RT8omGOyADtfDp7dbVxioR lnCD9vXJBdiafzGODuzK3h LHXhbDPldNllUM0rUEMoxo sqy945GgRa WSL6SZLxzQXoE0RvwF1xWs EaNAUvJNLgE6XlkQDyOQfm Z170VIymDfN5RCPorzJzX7 FsLWFsaWdu GrY2v0N2Ef9kUH0kLm4bTN g0AP77MX77kZOpy3P7hBV3 A6JuZNYbqzsjggucyMV9IX IyLZHrhV31 dHFeBFdnUv7kj2N9m498GF QcPAApaC91Sp2gnIdeTFFd nRPWuK2ytsojo1fhspvpFu AwMDAwMDt0 DUt1ZKScySvzJeHjMBZ3Ij Q9HNU8jWGkhZ7cuPppdqvp aC6bAvo+FMRuRVSmalI8J6 LqPrd6XQDo aDmnAD4bwKWbYNaiOp4tnP wqgOuwYM8kVLZlbjfuPVLd iY1mKSOsvGLidQkmXV4mTC Bubwdnj089 EkJmXCI0ILZfdCWoV2GooI 1aZkByNTNbWMCzV6UuyVQy QSvxX570SSnyQpM1SYToiu UwE0GkBFDm hWhiKhQ0u6Y3Xx8GLKdzKV 20UC74uSThk5A6wJF2Z5Tl SPYdowszdomtfQP3RGTwJT ZceE08cZJb WJxbSn1nj6W8m721YGEdHO SchY48Hn3fcIhfZJMgzWHM tZ2ubcgsg7bzcnxpFjYpYY PbGZw5AKz2 ADNvqHyrEtXlRYU8FnT5CE I4sQGplZ6juUpnasytnD2s Oyc+BZGvJDRxt3Giy0BlMN 37JS81X4Sn PjwvdGFibGU+PHRhYmxlIH dpZHRoPScxMDAlJyBzdHls WL1pAk7wMXNqTPFqcSdhcL IqKeRsy5rw APDpTJenTY7yzIzmH1AojM H0QYEhp3h6We95Y06kA7Fm dXA+VRRljUU7pFL0sQ2eOx ZfEfG8AAaz Z325OoAtyLAuLjqud8njo8 mlsOs9WzRgLOZrmlIkcBat IIG7f2NcOz73R27lSEajIE RoPSIyMCUi KFYueSwhvv5oeF4xXz1+PG OigWO9kGM9jN4fHiZcSlZ1 ILzvE102SwJtaAYeKjldO2 0gX8NlxMM+ OBIfIng9TAJymDtxZE6uwQ YdZSrmZx6fHCW0AdAaNfHr UVmjW8ZiUQTjpbcvaazbtQ U9ANKsBXYi zA78Fr0ogJaoVw0kCNGcXS X4AQKqpVLqB6DajF2kNjMf MLZoDDPxT9BinFLqGFntT8 08KPvnRjF7 VKWjlsIaG3ZqPEDfmFwvBc H0q2K4Fi8LzPrddIMlHJ5q XhGlNYu2I3UnCqp0JRJuuY foHD5geULw ZVzoIt6ubPqzxJzsYA5jID Zfolzqq385ZdNgx5ieLBYq xLYtITjfIOU3C55hz3W1GY MwMDAwMDA7 kUH2nU0ieNjkupwlaQXhfH arqbMazFwkLQqgMXgbI422 ALJpzVbrAyOHEar5U6LfGw d1ATXlhVui BF0slLUeXAyaOe8haRqkvI ezMY7dHRQqsqqtu468HqSz w4efFWFlfNVvXBjjWUQ8U0 7fn0Q3APFw WPKwPYY3rLN1gA0blFhlml ogbGVmdDsgdmVydGljYWwt GElxQ831UTZtgAzdGe1HUs c5L4GfPkf3 WCWpuJzjCR3dmDNeBPizXy 4neKvwwAbqEK8iJFUphwvc b264WzBni5biVKCcjBJwKC yoNRG5T65x p5C0NWAoQLTjKGG0kFD6kQ 1hbGlnbjogbGVmdDsgdmVy zXluJRyaGDxwI296JOQwnK snPlBheWVy OjwvdGQ+PN48by56Y6QaSo rwWpu9BYDwUDW8oWE0iS8y NRGhGOpth4Z0eBY7E0Zcvq Ukff9dt9py QQUjZXzjS28bj (more content not included)... Normal [facility] Pathology Noteon 06-05-2023 Pathology Note [id number]#1.[address] [facility] Operative Reporton Operative Report [id number]#1. 00TIFF [facility] Consent for Procedure/Surger yon 05-27-2023 Consent for Procedure/Surgery [id number]#1.[address] [facility] Lab Reportson 05-27-2023 Lab Reports [id number]#1.[address] [facility] Lab Reports [id number]#1.[address] [facility] Patient Educationon 05-26-19 Patient Education Urology Kidney Stones Kidney stones are rock-like masses that form inside of the kidneys. Kidneys are organs that make pee (urine). A kidney stone may move into other parts of the urinary tract, including: ? The tubes that connect the kidneys to the bladder (ureters). ? The bladder. ? The tube that carries urine out of the body (urethra). Kidney stones can cause very bad pain and can block the flow of pee. The stone usually leaves your body (passes) through your pee. You may need to have a doctor take out the stone. What are the causes? Kidney stones may be caused by: ? A condition in which certain glands make too much parathyroid hormone (primary hyperparathyroidism). ? A buildup of a type of crystals in the bladder made of a chemical called uric acid. The body makes uric acid when you eat certain foods. ? Narrowing (stricture) of one or both of the ureters. ? A kidney blockage that you were born with. ? Past surgery on the kidney or the ureters, such as gastric bypass surgery. What increases the risk? You are more likely to develop this condition if: ? You have had a kidney stone in the past. ? You have a family history of kidney stones. ? You do not drink enough water. ? You eat a diet that is high in protein, salt (sodium), or sugar. ? You are overweight or very overweight (obese). What are the signs or symptoms? Symptoms of a kidney stone may include: ? Pain in the side of the belly, right below the ribs (flank pain). Pain usually spreads (radiates) to the groin. ? Needing to pee often or right away (urgently). ? Pain when going pee (urinating). ? Blood in your pee (hematuria). ? Feeling like you may vomit (nauseous). ? Vomiting. ? Fever and chills. How is this treated? Treatment depends on the size, location, and makeup of the kidney stones. The stones will often pass out of the body through peeing. You may need to: ? Drink more fluid to help pass the stone. In some cases, you may be given fluids through an IV tube put into one of your veins at the hospital. ? Take medicine for pain. ? Make changes in your diet to help keep kidney stones from coming back. Sometimes, medical procedures are needed to remove a kidney stone. This may involve: ? A procedure to break up kidney stones using a beam of light (laser) or shock waves. ? Surgery to remove the kidney stones. Follow these instructions at home: Medicines ? Take hbng-avj-zaaswze and prescription medicines only as told by your doctor. ? Ask your doctor if the medicine prescribed to you requires you to avoid driving or using heavy machinery. Eating and drinking ? Drink enough fluid to keep your pee pale yellow. You may be told to drink at least 8?10 glasses of water each day. This will help you pass the stone. ? If told by your doctor, change your diet. This may include: ? Limiting how much salt you eat. ? Eating more fruits and vegetables. ? Limiting how much meat, poultry, fish, and eggs you eat. ? Follow instructions from your doctor about eating or drinking restrictions. General instructions ? Collect pee samples as told by your doctor. You may need to collect a pee sample: ? 24 hours after a stone comes out. ? 8?12 weeks after a stone comes out, and every 6?12 months after that. ? Strain your pee every time you pee (urinate), for as long as told. Use the strainer that your doctor recommends. ? Do not throw out the stone. Keep it so that it can be tested by your doctor. ? Keep all follow-up visits as told by your doctor. This is important. You may need follow-up tests. How is this prevented? To prevent another kidney stone: ? Drink enough fluid to keep your pee pale yellow. This is the best way to prevent kidney stones. ? Eat healthy foods. ? Avoid certain foods as told by your doctor. You may be told to eat less protein. ? Stay at a healthy weight. Where to find more information ? National Kidney Foundation (NKF): www.kidney.org ? [employer] (UCF): www.urologyhealth.org Contact a doctor if: ? You have pain that gets worse or does not get better with medicine. Get help right away if: ? You have a fever or chills. ? You get very bad pain. ? You get new pain in your belly (abdomen). ? You pass out (faint). ? You cannot pee. Summary ? Kidney stones are rock-like masses that form inside of the kidneys. ? Kidney stones can cause very bad pain and can block the flow of pee. ? The stones will often pass out of the body through peeing. ? Drink enough fluid to keep your pee pale yellow. This information is not intended to replace advice given to you by your health care provider. Make sure you discuss any questions you have with your health care provider. Document Revised: 09/30/2021 Document Reviewed: 09/30/2021 Elsevier Patient Education ? [address] [employer] [facility] Urology Office/Clinic Noteon 05-26-2023 Urology Office/Clinic Note Chief Complaint Cysto with L stent removal HPI Staff Cystoscopy with left ureteral stent removal. S/P Cystoscopy, left ureterorenoscopy, holmium laser lithotripsy, basket extraction and stent placement. History of Present Illness Tests reviewed: reviewed KUB I have reviewed the previous health record information and history for this patient from Dr. Hobbs. I have reviewed and verified the staff HPI to be accurate for this encounter. Review of Systems PHQ Score Initial Depression Screen Score: 0 SCORE ROS - Provider Constitutional: denies weight loss, denies hot flashes. Eyes: denies eye problems. Gastrointestinal: denies nausea, denies vomiting. Cardiovascular: denies chest pain or angina. Integumentary: no dryness Musculoskeletal: denies musculoskeletal symptoms. ENMT: denies otolaryngeal symptoms. Respiratory: no shortness of breath. Heme/Lymph: denies easy bleeding tendency, denies easy bruising tendency. Psychiatric: no confusion, no anxiety. Genitourinary: See HPI. Physical Exam Vitals & Measurements BP: 128/84 HT: 69 in HT: 176 cm WT: 83.9 kg WT: 184.58 lb BMI: 27.09 General Appearance: alert, no distress, well nourished, well developed male. Genitourinary: normal scrotum, normal testes, normal urethra, normal epididymis, normal vas deferens/spermatic cord. Flank Pain: none. Bladder: nonpalpable. Procedure Operative Information Anesthesia Type: Local Procedure: Local Cystoscopy with Stent Removal Complications: None Surgical risks, benefits, details of the procedure have been explained to the patient. Full informed consent has been obtained. Intraoperative Information Prepped: Patient is placed in supine position. The patient was prepped with the Betadine solution. Anesthesia: 2% Xylocaine Jelly per urethra. Procedure: Cystoscopy and left stent removal. The flexible Cystoscope was passed in retrograde fashion into the bladder without difficulty. The bladder was viewed in entirety and found to be without tumors or stones. Mild inflammation was seen surrounding the orifice with the stent seen protruding from it. The stent was then grasped and removed in its entirety. Specimens Removed: None Postoperative Information The patient tolerated the procedure well and was subsequently discharged home. Assessment/Plan 1. Foreign body in bladder (T19.1XXA: Foreign body in bladder, initial encounter) CT AP wo con 05/09/23 [facility] - 1.1 cm proximal to mid L ureteral stone with associated moderate L hydroureteronephrosis. S/p Cysto/L stent placement 05/14/23. S/p Cysto/L stent change/L URS/laser litho of large left ureteral calculus/basket extraction 05/20/23. Stone analysis 90% [place] Ca Ox, 10% Di. Pt had IO cysto/L stent removal without complications today. 2. Kidney stone (N20.0: Calculus of kidney) KUB 05/22/23 [facility] - Left renal stone kimberly (no size on report). Personal review: tiny flecks in left kidney. Reviewed imaging results w/ pt. Discussed metabolic workup to help evaluate the etiology of kidney stone formation, including genetic predisposition, dietary factors, and different metabolism in patients. Pt wishes to proceed. -Complete met w/u and KUB in 3 mos 3. History of kidney stones (Z87.442: Personal history of urinary calculi) Pt has had two prior stone events, these stones passed faster and with less difficulty. [1] Follow-up With When Contact Information WILL CRUM, Steven Vale, [facility] [address], [place] [phone] Additional Instructions: 3 mos w/ KUB and met workup Patient Education Kidney Stones, [id number]-Ykdp Radha Martin, personally scribed for Dr. Hobbs on 05/26/2023 16:17:03. . Documentation recorded by the scribe, Radha Tee, accurately reflects the services(s) I performed and decisions made by me. Authenticated by Dr. Hobbs on 05/26/2023 16:18:45. Problem List/Past Medical History Ongoing History of kidney stones Kidney stone Left flank pain Smoker Ureteral stone with hydronephrosis Historical No qualifying data Procedure/Surgical History Cystoscopy (05/26/2023), Removal of stent (05/26/2023), Ureteroscopy (05/14/2023), Appendectomy, Arthroscopy, knee, surgical; abrasion arthroplasty (includes chondroplasty where necessary) or multiple drilling or microfracture. Medications Flomax 0.4 mg Cap, 0.4 mg= 1 cap(s), Oral, Daily ketorolac 10 mg Tab, 10 mg= 1 tab(s), Oral, QID, PRN Allergies No Known Medication Allergies Social History Tobacco Former smoker, quit more than 30 days ago Tobacco Use:. Never Smokeless Tobacco Use:. Cigarettes, 05/26/2023 Family History Diabetes: Grandparent. Primary malignant neoplasm of female breast: Mother. 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 [facility] Comment on above: Result Comment: Elec tronically Signed By: Steven HOBBS MD\.br\Date and Time Signed: 05/26/23 16:18 EDT\.br\Electronically Co-Signed By: Radha Tee\.br\Date and Time Co-Signed: 05/26/23 16:17 EDT RAD - MISCon 05-25-2023 RAD - MISC [id number]#1.0 0TIFF [facility] Provider Letteron 05-22-2023 Provider Letter May 22, 2023 VON LOJA [address] [place] [phone] : 1975 To Whom It May Concern, Please excuse above patient from work. Date of Illness: From: 05/20/23 To: 05/26/23 May Return to Work On: 05/27/23 Restrictions: none Comments: Patient had surgical procedure on 05/20/2023. He may return to work 05/27/23. Sincerely, [facility] , option #[address] [facility] Operative Reporton 4 Operative Report [id number] 0TIFF [facility] Calculi, Urinaryon 4 Ca Oxalate Dihydrate 10 % Normal . [facility] Comment on above: Performed By: #### C ALCULI #### [facility] , Ca Oxalate Monohydrate 90 % Normal . [facility] Comment on above: Performed By: #### C ALCULI #### [facility] , Color (U) Brown Normal . [facility] Comment on above: Performed By: #### C ALCULI #### [facility] , Comment2 Normal . [facility] Comment on above: Result Comment: Calc ulus received wet. Wet calculi must be dried before analysis, which delays reporting of results. Leaving calculi wet (such as water, saline, blood, urine) may lead to changes in composition. Performed By: #### C ALCULI #### [facility] , Comment: Normal . [facility] Comment on above: Result Comment: Sharmaine pantoja questions regarding Calculi Analysis contact [facility] at: [phone]. Performed By: #### C ALCULI #### [facility] , Composition Normal . [facility] Comment on above: Result Comment: Perc entage (Represents the % composition) Performed By: #### C ALCULI #### [facility] , Disclaimer: Normal . [facility] Comment on above: Result Comment: This test was developed and its performance characteristics determined by [employer]. It has not been cleared or approved by the Food and Drug Administration. Performed at: [address] [id number] Commodity Lead: Nona Lema PhD, Phone: [phone] Performed By: #### C ALCULI #### [facility] , Note Normal . [facility] Comment on above: Result Comment: Calc indigo report will follow via computer, mail or vision impaired teacher delivery. PERFORMED BY: [place] [address] [place] [address] PATHOLOGIST AUTO CAMP ATTENDANT PAMELA TAVERAS M.D. Performed By: #### C ALCULI #### [facility] , Photo Normal . [facility] Comment on above: Result Comment: Phot ograph will follow under a separate cover Performed By: #### C ALCULI #### [facility] , Size 3x3 Normal . [facility] Comment on above: Result Comment: Mult iple pieces received. Dimensions of the largest piece reported. Performed By: #### C ALCULI #### [facility] , Source Normal . [facility] Comment on above: Result Comment: Left Ureter Performed By: #### C ALCULI #### [facility] , Weight 58 Normal . [facility] Comment on above: Performed By: #### C ALCULI #### [facility] , Cole 05-20-2023 L Specimen: Received: 05/20/23 Status: JULIANEJewell Neely Num: [id number] Spec Type: Surgical Subm Dr: Steven Hobbs MD Tissues: A Urinary Calculus (LT URETERAL STONE) Procedures: Level 1 Gross Age/ Patient Sex Location Account Attending Physician Von Loja III 48/M [place] [id number] Steven Hobbs MD SPEC NUM: RECD: 05/20/23 STATUS: GLADYS NEELY NUM: [id number] KALE[place]: 05/20/[address]: Steven Hobbs MD ENTERED: 05/20/23 [facility] DR: Pierre [facility] SPEC TYPE: Surgical DEPT: S ORDERED: Level 1 Gross ORDERED: Level 1 Gross Pathological Diagnosis Left ureter stone, removal: Urinary calculus, gross examination only. Sent for chemical analysis. Gross Description In saline labeled left ureteral stone are multiple pieces of hidalgo-brown calcified tissue ranging in size from 0.2 x 0.1 x 0.1 cm to 0.4 x 0.2 x 0.2 cm. Submitted for gross identification only. RG Clinical history: Hydronephrosis, with renal ureteral calculus obstruction CPT Codes 89854 ---- ---- Specimen: [id number] Received: 05/20/23 Status: GLADYS Neely Num: [id number] Spec Type: Surgical Subm Dr: Steven Hobbs MD Tissues: A Urinary Calculus (LT URETERAL STONE) Procedures: Level 1 Gross ---- Patient: Von Loja III [id number] (Continued) ---- Signed (signature on file) Evy Paulson MD 06/04/23 1756 Normal [facility] Postoperative Documentson Postoperative Documents [id number]#1. 00TIFF [facility] XR Urography Retrograde Left on 05-19-2023 XR Urography Retrograde Left Exam Date/Time: 05/14/2023 17:09 EDT Reason for Exam: Cystoscopy Retrograde Stent Insertion Report IMPRESSION: INTEROPERATIVE FLUOROSCOPY PROVIDED FOR DR. DUFFY'S RETROGRADE PROCEDURES. EXAM: XR Urography Retrograde Left DATE: 05/14/2023 4:32 PM CLINICAL HISTORY: Cystoscopy Retrograde Stent Insertion. COMPARISON: KUB from earlier 05/14/2023. TECHNIQUE: Intraoperative fluoroscopy was provided for Dr. Duffy's retrograde procedures. A total of 2.30 Air Kerma (Ka, r) of fluoroscopy was used with 5 fluoroscopic stills saved. No diagnostic images were obtained. A left ureteral stent is noted in expected position on the final image saved, with the approximately 1 cm calculus overlying the mid left kidney. Please see Dr. Duffy's surgical notes for completeness. Ordering Provider: Steven HOBBS FINAL REPORT Dictated: 05/19/2023 12:09 pm Arnol Bojorquez MD Signed (Electronic Signature): 05/19/2023 12:09 pm Signed by: Arnol Bojorquez MD Transcribed by: AUGUSTIN Technologist: DANI Technical Comments Radiation Dose: Ka,r in mGy = 2.30 DAP = 195.31 Fluoro Time: [address] [facility] IntraOperative Documentson 0 05-18-2023 IntraOperative Documents [id number]#1.[address] [facility] Progress Note-Physicianon Progress Note-Physician Patient: VON LOJA Age: 48 years Sex: Male : 1975 Associated Diagnoses: None Author: MD Ernestina, Any Bob Postoperative Information Postoperative disposition: Postoperative disposition: To PACU. Optimetrix number: Optimetrix number [id number]. Anesthetic utilized: General. Health Status Allergies: Allergic Reactions (Selected) No Known Medication Allergies Physical Examination VS/Measurements Pain Assessment: Controlled. General: Awake, Alert, Appropriate. Respiratory: Adequate air exchange. Cardiovascular: Stable, Normal peripheral perfusion. Neurological: Normal sensory function, Normal motor function. Assessment Anesthetic outcome No anesthetic complications noted. Adequate pain relief. able to void without difficulty, able to ambulate with assist, tolerating PO intake, no N/V. Review / Management Condition: Stable. Plan Transfer/Discharge: Transfer/Discharge Discharge when meets criteria ( To home ). [facility] Comment on above: Result Comment: Elec tronically Signed By: MD Do Ahmad F\.br\Date and Time Signed: 05/18/23 12:26 EDT Progress Note-Physician Patient: VON LOJA Age: 48 years Sex: Male : 1975 Associated Diagnoses: None Author: MD Do Ahmad F Preoperative Information Time patient last ate or drank:=== (npo 8 hours) Anesthesia history: Patient history: No prior anesthesia problems. Re-evaluation prior to induction: Completed, Initial evaluation reviewed. Review of Systems Respiratory: No shortness of breath. Cardiovascular: No chest pain. Hematology/Lymphatics: No bruising tendency, No bleeding tendency. Health Status Allergies: Allergic Reactions (All) No Known Medication Allergies Current medications: (Selected) Prescriptions Prescribed Vesicare 10 mg Tab: 10 mg = 1 tab(s), Oral, Daily, # 30 tab(s), Refills(s) 1, Pharmacy: [id number], 178, cm, 05/14/23 14:35:00 EDT, Height/Length Dosing, 86.2, kg, 05/14/23 14:35:00 EDT, Weight Dosing ketorolac 10 mg Tab: 10 mg = 1 tab(s), Oral, QID, PRN for pain, # 20 tab(s), Refills(s) 0, Pharmacy: [id number], 176, cm, 05/13/23 9:15:00 EDT, Height/Length Dosing, 83.9, kg, 05/13/23 9:15:00 EDT, Weight Dosing Documented Medications Documented Flomax 0.4 mg Cap: 0.4 mg = 1 cap(s), Oral, Daily Problem list: All Problems Ureteral stone with hydronephrosis / SNOMED CT 3875738580 / Confirmed Left flank pain / SNOMED CT 558364614 / Confirmed History of kidney stones / SNOMED CT 2688956525 / Confirmed Smoker / SNOMED CT 358485832 / Confirmed Added secondary to documentation in Social History. Canceled: Kidney stone / SNOMED CT 048559514 Histories Past Medical History: No active or resolved past medical history items have been selected or recorded. Family History: Primary malignant neoplasm of female breast Mother Diabetes Grandparent Procedure history: Ureteroscopy ([id number]) on 05/14/2023 at 48 Years. Appendectomy (970770055). Arthroscopy, knee, surgical; abrasion arthroplasty (includes chondroplasty where necessary) or multiple drilling or microfracture (45499). Social History Social & Psychosocial Habits Tobacco 05/14/2023 Tobacco Use: Former smoker, quit more Smokeless tobacco use: Never Type: Cigarettes . Physical Examination Please see preop flow sheet Airway: Mallampati classification: II (soft palate, fauces, uvula visible). Respiratory: Lungs are clear to auscultation. Cardiovascular: Normal rate, Regular rhythm. Neurologic: Alert. Review / Management Results review Interpretation of Outside Results Chest x-ray results Radiology results ECG interpretation Condition Plan [place] [employer] Anesthesiologists (ASA) physical status classification: Class II. Anesthetic Preoperative Plan Anesthesia: General. . Anesthetic plan, risks, benefits, and alternatives discussed with the patient and/or family. Risks discussed: nausea, vomiting, headache, sore throat, dental injury, serious complications. Patient verbalized understanding. Communication: face to face with patient 5 minutes. [facility] Comment on above: Result Comment: Elec tronically Signed By: MD Ernestina, Any Bob\.br\Date and Time Signed: 05/18/23 12:25 EDT Consent for Anesthesiaon Consent for Anesthesia [id number]. 00TIFF [facility] Discharge Instructionson Discharge Instructions [id number]#1. 00TIFF [facility] ECG 12-Leadon 05-15-2023 ECG 12-Lead [id number]#1.0 0TIFF [facility] H&P Updateon 05-15-2023 H&P Update [id number]#1. 00TIFF [facility] IntraOperative Documentson 0 05-15-2023 IntraOperative Documents [id number]#1. 00TIFF [facility] Lab Reportson 05-15-2023 Lab Reports [id number]#1.[address] [facility] Main OR Intraoperative Recor don 05-15-2023 Main OR Intraoperative Record IntraOp Document Type FT Summary Primary Physician: Steven HOBBS MD Finalized Date/Time: 05/15/23 10:22:10 Pt. Name: ALVAROVON/Sex: 1975 Male Med Rec #: [id number] Physician: Steven HOBBS MD Financial #: [id number] Pt. Type: A Room/Bed: [place] [address] Admit/Disch: 05/14/23 13:48:08 - 05/14/23 18:35:00 Institution: Case Times FT Entry 1 Patient Times In Room 05/14/23 16:40:00 Out Room 05/14/23 17:01:00 Procedure Times Start 05/14/23 16:51:00 Stop 05/14/23 16:55:00 Anesthesia Times Start 05/14/23 16:40:00 Stop 05/14/23 17:01:00 Last Modified By: Taz MELCHOR, Narda Shelton 05/14/23 17:03:23 General Comments: 05/15/23 Chart opened to review and send charges [facility]oth CSFA Case Attendance FT Entry 1 Entry 2 Entry 3 Case Attendee Ishaan Ramos MD, Steven Mcghee RN, Narda Shelton Role Performed Anesthesiologist Surgeon - Primary Tile Designer - Primary Boat Hand Time In 05/14/23 16:40:00 05/14/23 16:40:00 05/14/23 16:40:00 Time Out 05/14/23 17:01:00 05/14/23 17:01:00 05/14/23 17:01:00 Procedure CYSTOSCOPY RETROGRADE CYSTOSCOPY RETROGRADE CYSTOSCOPY RETROGRADE STENT INSERTION(Left) STENT INSERTION(Left) STENT INSERTION(Left) Comments dr. do supervising Last Modified By: Taz MELCHOR, Narda Mcghee RN, Narda Mcghee RN, Narda Shelton 05/14/23 Rachel Shelton 05/14/23 Rachel P 05/14/23 17:03:33 17:03:33 17:03:33 Entry 4 Entry 5 Case Attendee Carmen Gli Kelsie E Role Performed Scrub - Primary Tile Designer - Relief Time In 05/14/23 16:40:00 05/14/23 16:51:00 Time Out 05/14/23 17:01:00 05/14/23 17:01:00 Procedure CYSTOSCOPY RETROGRADE CYSTOSCOPY RETROGRADE STENT INSERTION(Left) STENT INSERTION(Left) Comments Last Modified By: Taz MELCHOR, Narda Mcghee RN, Narda Shelton 05/14/23 Rachel Shelton 05/14/23 17:03:33 17:03:33 Perioperative Protocols FT Pre-Care Text: Implements protective measures prior to operative or invasive procedure, confirms identity before the operative or invasive procedure, verifies operative procedure, surgical site, and laterality Entry 1 Procedure(s) CYSTOSCOPY RETROGRADE Patient Identity Birthday, ID Band STENT INSERTION(Left) Verified (select at Check, Patient least 2): Participation Consents / H and P Anesthesia Consent, Operative Site Present Verified HandP, Surgery/Procedure Marking Verified Consent Surgical Site Yes Laterality Verified Yes Verified Procedure Verified Yes Correct Patient Yes Position Verified Availability Equipment, Implant, Prep Dry n/a Verified (If Medication, X-ray Applicable) PreOp Antibiotic Yes Time Out WILL CRUM, Estuardo Bain Participants Ishaan Ramos, Taz MELCHOR, Jeffery Rodriguez [place] A Time Out Complete 05/14/23 16:49:00 Outcomes Met? Yes Last Modified By: Narda Mcghee RN 05/14/23 16:53:27 Post-Care Text: The patient is free from signs and symptoms of injury caused by extraneous objects Allergy Information FT Pre-Care Text: Verifies allergies Entry 1 Allergies Reviewed? Yes Allergies Reviewed Self/Patient With Outcomes Met? Yes Last Modified By: Taz MELCHOR, Narda Shelton 05/14/23 16:53:32 Post-Care Text: The patient received appropriate medication(s) safely administered during the perioperative period Surgical Procedures FT Entry 1 Procedure Description Procedure CYSTOSCOPY RETROGRADE Modifiers Left STENT INSERTION Surgeon Description CYSTOSCOPY, LEFT STENT INSERTION Primary Procedure Yes Primary Surgeon Steven HOBBS MD Start 05/14/23 16:51:00 Stop 05/14/23 16:55:00 Anesthesia Type General Surgical Service Urology Wound Class 2 - Clean-Contaminated Last Modified By: Narda Mcghee RN 05/14/23 16:55:49 General Case Data FT Pre-Care Text: Classifies surgical wound, implements aseptic technique, initiates traffic control Entry 1 Case Information OR OR 1 FT Case Level Level 3 Wound Class 2 - Clean-Contaminated Specialty Urology ASA Class 2 Preop Diagnosis LEFT URETERAL STONE Postop Same As Preop Yes WITH HYDRONEPHROSIS Postop Diagnosis LEFT URETERAL STONE Outcomes Met? Yes WITH HYDRONEPHROSIS Last Modified By: Narda Mcghee RN 05/14/23 16:53:55 Post-Care Text: The patient is free from signs and symptoms of infection Skin Assessment (Pre Procedure) FT Pre-Care Text: Implements protective measures to prevent skin/ tissue injury due to thermal or mechanical sources Evaluates for signs and symptoms of physical injury to skin and tissue Entry 1 Skin Integrity Intact, [place], Warm, and Skin Abnormality No Dry Outcomes Met? Yes Last Modified By: Narda Mcghee RN 05/14/23 16:54:02 Post-Care Text: The patient is free from signs and symptoms of injury caused by extraneous objects Patient Positioning FT Pre-Care Text: Identifies physical alterations that require additional (more content not included)... Normal [facility] Physician Orderon 05-15-2023 Physician Order [id number]#1. 00TIFF [facility] Preoperative Documentson Preoperative Documents [id number]#1. 00TIFF [facility] COAGULATIONOrdered By: Walter Rao on 05-14-2023 aPTT Coag (PPP) [Time] 34.4 s Normal 25.1 - 36.5 second(s) [facility] Comment on above: Interpretive Data: P arameter 15 days - 4 weeks 1 - 5 months 6 - 11 months 1 - 5 years 6 - 10 years 11 - 17 years PTT Mean: 35.4 (27.6-45.6) Mean: 33.5 (24.8-40.7) Mean: 32.4 (25.1-40.7) Mean: 31.6 (24.0-39.2) Mean: 31.6 (26.9-38.7) Mean: 31.0 (24.6-38.4) Pediatric Reference ranges were obtained from a study by Anil Mcfarland et al. prepared from 1437 samples obtained at 7 different centers using the same coagulation reagent and instrumentation as [facility] Currently there are no coagulation studies available worldwide for children to 14 days, and no normal ranges. Heparin therapeutic range (represented by Anti-Factor Xa activity of 0.2 - 0.4 U/mL) corresponds to PTT of 56.6 - 109.0 sec. INR Coag (PPP) [Relative time] 1.02 {INR} Invalid Interpretation Code [facility] Comment on above: Interpretive Data: I NR results are specifically intended to assess patients stabilized on long-term Anticoagulation therapy suggested INR s Less Intensive Anticoagulation 2.0 3.0 Conventional Range 3.0 4.5 PT Coag (PPP) [Time] 11.4 s Normal 9.4 - 1 2.5 second(s) [facility] Comment on above: Interpretive Data: 1 5 days - 4 weeks 1 - 5 months 6 -11 months 1 5 years 6 10 years 11 -17 years Mean: 11.2 (9.5 12.6) Mean: 11.0 (9.7 12.8) Mean: 11.0 (9.8 13.0) Mean: 11.3 (9.9 13.4) Mean: 11.7 (10.0 14.6) Mean: 11.8 (10.0 - 14.1) Pediatric Reference ranges were obtained from a study by nora Malone alOchoa prepared from 1437 samples obtained at 7 different centers using the same coagulation reagent and instrumentation as [facility] Currently there are no coagulation studies available worldwide for children to 14 days, and no normal ranges. Consent for Procedure/Surger yon 05-14-2023 Consent for Procedure/Surgery [id number] [facility] Consent for Treatmenton Consent for Treatment [id number] [facility] Discharge Instructionson Discharge Instructions VON LOJA :1975 Visit Date:05/14/2023 Inpatient Discharge Instructions Your Care Team Admitting Physician - Steven HOBBS MD Referring Physician - Steven HOBBS MD Reason for Your Visit LEFT URETERAL STONE WITH HYDRONEPHROSIS Tests Performed Chest XR 2 Views XR Abdomen 1 View XR Urography Retrograde Left -- Results Pending -- Please visit your patient portal for your results or contact your primary care physician. Procedure History Ureteroscopy (05/14/2023), Appendectomy, Arthroscopy, knee, surgical; abrasion arthroplasty (includes chondroplasty where necessary) or multiple drilling or microfracture. What to do next Instructions From Your Doctor Event Name Event Result Discharge Instructions Freetext Patient is to take daily dose of antibiotic already prescribed and bladder spasm medicine. Office will call for stone surgery next week. Discharge Activity Resume normal activities in 24 hours Discharge Restrictions No driving for 24 hrs Discharge Diet(s) Regular Call Your Doctor For Temperature above 101.5 degrees Pharmacy Information Other: [facility] Discharge Instructions Discharge Instructions New Follow Up Appointments after Discharge Follow Up with Steven HOBBS When: Comments: Office will call for neck step Where: [address] [place] [phone] (1) Medications What How Much When Instructions Next Dose New solifenacin (Vesicare 10 mg Tab) 1 Tablets By Mouth Every day Refills: 1 Pickup at [facility] Unchanged ketorolac (ketorolac 10 mg Tab) 1 Tablets By Mouth 4 times a day as needed for for pain Unchanged tamsulosin (Flomax 0.4 mg Cap) 1 Capsules By Mouth Every day Pharmacy Information [facility]: [address] [place], [place] [id number] [phone] Allergies No Known Medication Allergies Devices Implanted/Removed This Visit Notice: You have devices implanted this visit that may not be MRI compatible. Implanted CYSTOSCOPY RETROGRADE STENT INSERTION Ureter L URETERAL STENT 6FR 22-32CM 05/14/2023 [facility] [employer] [facility] [place], [place] Dr. Mainor Durand Post-operative Instructions for Ureteroscopy, Laser Lithotripsy, Stone Extraction and Stent Placement There are no incisions or dressings to be concerned with, as the procedure was performed inside the urinary system. For 24 hours after surgery: ? No driving or operating machinery ? Do not make important decisions ? Do not consume alcohol, sleeping pills Stent Placement You may have a stent which spans the distance between your bladder and your kidney, allowing urine to pass through. It prevents blockage from swelling, kidney stones in ureter (tube connecting the kidney to the bladder), or scars. The presence of the stent may cause: ? Back or side pain, especially with urination ? Frequent or urgent urination ? Bladder pressure or pain ? Blood in urine You may pass stone debris or small blood clots, which is expected. Drinking plenty of water to dilute the urine may help. If there is a thread coming out of urinary channel, be careful not to accidently pull on this, as it is attached to the stent. The stent will most likely be removed in the office during a short procedure in which a scope is placed into the bladder, the stent is grasped and removed. At other times the stent may need to stay longer, either in preparation for other procedures or for other reasons. If it is to remain fci, however, changes of the stent are required (about every 3-4 months). Diet You may resume your normal diet, but you may want to start slowly and avoid spicy food, caffeine, carbonated beverages and alcohol, especially if you have a stent. Your diet and fluid intake may make irritation from the stent worse. Activity You may resume your normal activities, although you should take it easy on the day of the procedure. Minimizing activity may decrease the back discomfort and irritation from the stent, if present. Medications ? You may resume your home medications unless instructed otherwise. ? Hold aspirin, ibuprofen, Coumadin (warfarin) and other blood thinners until your office visit (we will discuss when to resume these medications) ? Take your prescribed medications as directed, including your antibiotics. You may also be given a prescription for pain medicine or medicines to help with the bladder irritation from stent, if present. Things to watch for which would require an Emergency Room Visit (or call 911) (This is not a complete list) ? Fever over 101.5 degrees, with or without chills ? Severe bleeding ? Severe drug reactions with itching, hives, rash, or severe flank pain ? Tenderness or swelling or the calves, chest pain, or shortness (more content not included)... Normal [facility] Comment on above: Result Comment: Elec tronically Signed By: Liam MELCHOR, Martha Contreras\.br\Date and Time Signed: 05/14/23 18:06 EDT Formson 05-14-2023 Forms [id number]#1. 00TIFF [facility] Main OR PACU I [facility]ordon Main OR PACU I Record PACU Phase I Docum ent Type FT Summary Primary Physician: Steven HOBBS MD Finalized Date/Time: 05/14/23 17:49:19 Pt. Name: ALVARO VON Ashford./Sex: 1975 Male Med Rec #: [id number] Physician: Steven HOBBS MD Financial #: [id number] Pt. Type: A Room/Bed: [place] [address] Admit/Disch: 05/14/23 13:48:08 - Institution: Case Times PACU I FT Pre-Care Text: Identifies barriers to communication and implements measures to provide psychological support Develops individualized plan of care, and ensures continuity of care Maintains patient's dignity and privacy, and maintains patient confidentiality Identifies and reports philosophical, cultural, and spiritual beliefs and values Identifies individual values and wishes concerning care Implements aseptic technique, and administers prescribed antibiotic therapy and immunizing agents as ordered Evaluates postoperative tissue perfusion Implements thermoregulation measures, and monitors body temperature Evaluates postoperative respiratory status Evaluates postoperative cardiac status Evaluates postoperative neurological status Assesses pain control, collaborated in initiating patient-controlled analgesia and implements alternative methods of pain control Verifies allergies, administers prescribed medications and solutions, evaluates response to medications Entry 1 In PACU I 05/14/23 17:03:00 Discharge from PACU 05/14/23 17:33:00 I Outcomes Met? Yes Last Modified By: La Santos RN 05/14/23 17:48:57 Post-Care Text: The patient demonstrates knowledge of the expected response to the operative or invasive procedure The patient's care is consistent with the individualized perioperative plan of care The patient's right to privacy is maintained The patient's value system, lifestyle, ethnicity, and culture are considered, respected, and incorporated into the perioperative plan of care The patient participates in decisions affecting his or her perioperative plan of care The patient is free from signs and symptoms of infection The patient has wound/tissue perfusion consistent with or improved from baseline levels established preoperatively The patient is at or returning to normothermia at the conclusion of the immediate postoperative period The patient's respiratory function is consistent with or improved from baseline levels established preoperatively The patient's cardiovascular status is consistent with or improved from baseline levels established preoperatively The patient's cardiovascular status is consistent with or improved from baseline levels established preoperatively The patient demonstrates and/or reports adequate pain control throughout the perioperative period The patient received appropriate medication(s), safely administered during the perioperative period Acuity Level PACU I FT Entry 1 Start Time 05/14/23 17:03:00 Stop Time 05/14/23 17:33:00 Acuity Level Acuity Level I Last Modified By: La Santos RN 05/14/23 17:49:18 Finalized By: La Santos RN Document Signatures Signed By: La Santos RN 05/14/23 17:[address] [facility] Main OR PACU II Rec[facility] Main OR PACU II Record PACU Phase II Doc ument Type FT Summary Primary Physician: Steven HOBBS MD Finalized Date/Time: 05/14/23 18:26:50 Pt. Name: VON LOJA./Sex: 1975 Male Med Rec #: [id number] Physician: Steven HOBBS MD Financial #: [id number] Pt. Type: A Room/Bed: Admit/Disch: 05/14/23 13:48:08 - Institution: Case Times PACU II FT Pre-Care Text: Identifies barriers to communication and implements measures to provide psychological support and determines knowledge level Develops individualized plan of care, and ensures continuity of care Maintains patient's dignity and privacy, and maintains patient confidentiality Identifies and reports philosophical, cultural, and spiritual beliefs and values Identifies individual values and wishes concerning care administers prescribed antibiotic therapy and immunizing agents as ordered, Evaluates postoperative tissue perfusion Implements thermoregulation measures, and monitors body temperature Evaluates postoperative respiratory status Evaluates postoperative cardiac status Evaluates postoperative neurological status Assesses pain control, collaborated in initiating patient-controlled analgesia and implements alternative methods of pain control Verifies allergies, administers prescribed medications and solutions, evaluates response to medications Entry 1 In PACU II 05/14/23 17:35:00 Discharge from PACU 05/14/23 18:35:00 II Outcomes Met? Yes Last Modified By: Martha Wheeler RN 05/14/23 18:26:46 Post-Care Text: The patient demonstrates knowledge of the expected response to the operative or invasive procedure The patient's care is consistent with the individualized perioperative plan of care The patient's right to privacy is maintained The patient's value system, lifestyle, ethnicity, and culture are considered, respected, and incorporated into the perioperative plan of care The patient participates in decisions affecting his or her perioperative plan of care. The patient is free from signs and symptoms of infection The patient has wound/tissue perfusion consistent with or improved from baseline levels established preoperatively The patient is at or returning to normothermia at the conclusion of the immediate postoperative period The patient's respiratory function is consistent with or improved from baseline levels established preoperatively The patient's cardiovascular status is consistent with or improved from baseline levels established preoperatively The patient's neurological status is consistent with or improved from baseline levels established preoperatively The patient demonstrates and/or reports adequate pain control throughout the perioperative period The patient received appropriate medication(s), safely administered during the perioperative period Finalized By: Martha Wheeler RN Document Signatures Signed By: Martha Wheeler RN 05/14/23 18:[address] [facility] Main OR Preoperative Recordo n 05-14-2023 Main OR Preoperative Record PreOp Document Type FT Summary Primary Physician: Steven HOBBS MD Finalized Date/Time: 05/14/23 17:04:00 Pt. Name: VON LOJA/Sex: 1975 Male Med Rec #: [id number] Physician: Steven HOBBS MD Financial #: [id number] Pt. Type: A Room/Bed: AS02/ Admit/Disch: 05/14/23 13:48:08 - Institution: Case Times PreOp FT Pre-Care Text: Verifies consent for planned procedure, identifies individual values and wishes concerning care, includes family members in perioperative teaching Entry 1 Patient Times. In Pre Surgery 05/14/23 14:20:00 Out Pre Surgery 05/14/23 16:38:00 Outcomes Met? Yes Last Modified By: Narda Mcghee RN 05/14/23 17:03:59 Post-Care Text: The patient participates in decisions affecting his or her perioperative plan of care Finalized By: Narda Mcghee RN Document Signatures Signed By: Narda Mcghee RN 05/14/23 17:[address] [facility] Monitor [facility] 05-14-2023 Monitor Record [id number]. 00TIFF Normal [facility] Operative Reporton 4 Operative Report Patient: JESSICA LOJA Age: 48 years Sex: Male : 1975 Associated Diagnoses: None Author: Steven HOBBS MD Postoperative Information Procedure: 1. Cystoscopy. 2. Left stent placement 6 Ug[place]an variable length. Date/ Time: 05/14/2023 17:01:00 Preoperative Diagnosis: Obstructing left ureteral calculus 11 mm. Postoperative Diagnosis: same. Procedure: Anesthesia Method: General. Performed by: Steven Hobbs MD. Findings: 11 mm stone at L3-4 on the left. Specimens Removed: None. Prosthesis: 6 Ug[place]an variable length left ureteral stent. . Estimated Blood Loss: 0 ml. Orders Complications: None. Notes: Indications: This gentleman has an 11 mm left mid ureteral calculus that is causing consistent pain. He is unable to pass the stone. He now presents for cystoscopy and stent placement so as to facilitate kidney decompression and relief of his pain. He has signed an informed consent for these procedures after risks were explained. Procedure: The patient was brought to the operating room and placed on the operating room table in the supine position. SCDs were placed on his lower extremities and turned on and functioning during the entire case. Timeout was called by all parties in the room. We all agreed upon the patient's identification and the planned procedures for this patient. General anesthesia was then administered via LMA. He was then repositioned into the modified dorsal lithotomy position. All pressure points were satisfactorily padded. Genitalia were sterilely prepped and draped in the usual fashion. After placing 2% lidocaine gel per urethra I passed a 22 Ugandan Stortz cystoscope per urethra and into the bladder. The urethra was normal. The prostate revealed bilobar obstruction. Panendoscopy in the bladder showed no evidence of any tumors stones or lesions. While using fluoroscopy I could clearly see his stone at the L3-4 level on the left. I then slid a Glidewire through the scope and up the left ureter. When it got to the stone it buckled. After numerous attempts finally the wire got beyond the stone up into the kidney. There was an immediate high-pressure E flux of cloudy urine coming down into the bladder. I then slid a 6 Ug[place]an variable length ureteral stent over the wire and as it got up to the stone it became difficult to pass. Constant steady pressure allowed the stent to get up but in doing so it pushed the stone proximally. The stone ended up in the UPJ and the stent went into the renal pelvis. The wire was removed and there were good curls in the kidney and in the bladder. The bladder was drained of its contents and the scope was removed. He was then transferred to a [place] bed and wheeled to PACU in stable condition. He will be discharged to home with a prescription for Vesicare 10 mg daily #30. He already has Keflex at home which he will resume. The plan is that next week we will do ureteroscopy laser on his stone.. Anesthesia type: General. Normal [facility] Comment on above: Result Comment: Elec tronically Signed By: WILL CRUM, Steven Vale\.cipriano\Date and Time Signed: 05/14/23 17:05 EDT Outside Recordson 05-14-2023 Outside Records [id number] [facility] PT & PTTon 05-14-2023 aPTT Coag (PPP) [Time] 34.4 second(s) Normal 25.1-36.5 [facility] Comment on above: Result Comment: Para meter 15 days - 4 weeks 1 - 5 months 6 - 11 months 1 - 5 years 6 - 10 years 11 - 17 years PTT Mean: 35.4 (27.6-45.6) Mean: 33.5 (24.8-40.7) Mean: 32.4 (25.1-40.7) Mean: 31.6 (24.0-39.2) Mean: 31.6 (26.9-38.7) Mean: 31.0 (24.6-38.4) Pediatric Reference ranges were obtained from a study by Anil Mcfarland et al. prepared from 1437 samples obtained at 7 different centers using the same coagulation reagent and instrumentation as [facility] Currently there are no coagulation studies available worldwide for children to 14 days, and no normal ranges. Heparin therapeutic range (represented by Anti-Factor Xa activity of 0.2 - 0.4 U/mL) corresponds to PTT of 56.6 - 109.0 sec. Performed By: #### 1 [id number] ####[facility] [address] [place] [address] INR Coag (PPP) [Relative time] 1.02 {INR} Invalid Interpretation Code [facility] Comment on above: Result Comment: INR results are specifically intended to assess patients stabilized on long-term Anticoagulation therapy suggested INR?s ?Less Intensive Anticoagulation? 2.0 ? 3.0 Conventional Range 3.0 ? 4.5 Performed By: #### 1 [id number] ####[facility] [address] [place] [address] PT Coag (PPP) [Time] 11.4 second(s) Normal 9.4-12.5 [facility] Comment on above: Result Comment: 15 d ays - 4 weeks 1 - 5 months 6 -11 months 1 ? 5 years 6 ? 10 years 11 -17 years Mean: 11.2 (9.5 ? 12.6) Mean: 11.0 (9.7 ? 12.8) Mean: 11.0 (9.8 ? 13.0) Mean: 11.3 (9.9 ? 13.4) Mean: 11.7 (10.0 ? 14.6) Mean: 11.8 (10.0 - 14.1) Pediatric Reference ranges were obtained from a study by Anil Mcfarland et al. prepared from 1437 samples obtained at 7 different centers using the same coagulation reagent and instrumentation as [facility] Currently there are no coagulation studies available worldwide for children to 14 days, and no normal ranges. Performed By: #### 1 [id number] ####[facility] [address] [place] [address] Patient Education - Texton 0 05-14-2023 Patient Education - Text [facility] [place], [place] Dr. Mainor Durand Post-operative Instructions for Ureteroscopy, Laser Lithotripsy, Stone Extraction and Stent Placement There are no incisions or dressings to be concerned with, as the procedure was performed inside the urinary system. For 24 hours after surgery: ? No driving or operating machinery ? Do not make important decisions ? Do not consume alcohol, sleeping pills Stent Placement You may have a stent which spans the distance between your bladder and your kidney, allowing urine to pass through. It prevents blockage from swelling, kidney stones in ureter (tube connecting the kidney to the bladder), or scars. The presence of the stent may cause: ? Back or side pain, especially with urination ? Frequent or urgent urination ? Bladder pressure or pain ? Blood in urine You may pass stone debris or small blood clots, which is expected. Drinking plenty of water to dilute the urine may help. If there is a thread coming out of urinary channel, be careful not to accidently pull on this, as it is attached to the stent. The stent will most likely be removed in the office during a short procedure in which a scope is placed into the bladder, the stent is grasped and removed. At other times the stent may need to stay longer, either in preparation for other procedures or for other reasons. If it is to remain termite treater helper, however, changes of the stent are required (about every 3-4 months). Diet You may resume your normal diet, but you may want to start slowly and avoid spicy food, caffeine, carbonated beverages and alcohol, especially if you have a stent. Your diet and fluid intake may make irritation from the stent worse. Activity You may resume your normal activities, although you should take it easy on the day of the procedure. Minimizing activity may decrease the back discomfort and irritation from the stent, if present. Medications ? You may resume your home medications unless instructed otherwise. ? Hold aspirin, ibuprofen, Coumadin (warfarin) and other blood thinners until your office visit (we will discuss when to resume these medications) ? Take your prescribed medications as directed, including your antibiotics. You may also be given a prescription for pain medicine or medicines to help with the bladder irritation from stent, if present. Things to watch for which would require an Emergency Room Visit (or call 911) (This is not a complete list) ? Fever over 101.5 degrees, with or without chills ? Severe bleeding ? Severe drug reactions with itching, hives, rash, or severe flank pain ? Tenderness or swelling or the calves, chest pain, or shortness of breath Please call the office to arrange for your post-operative appointment (with XRAY) [phone] [facility] Screenson 05-14-2023 Screens [id number]. 00TIFF Normal [facility] XR Abdomen 1 Viewon 05-14-19 24 XR Abdomen 1 View Exam Date/Time: 05/14/2023 14:10 EDT Reason for Exam: Other (please specify) Report IMPRESSION: Probable left ureteral calculus. EXAMINATION/TECHNIQUE: XR Abdomen 1 View HISTORY: Kidney stones COMPARISON: None RESULT: 12 mm calculus on the left near midline, projecting near the level of L4 inferior endplate on the superior view of the abdomen and near the level of L3-L4 on the more inferior view of the pelvis, probably within the left ureter. No distinct calcifications radiographically projecting over the kidneys, or course of the right ureter. Nonspecific nondilated bowel gas pattern. Lung bases unremarkable. No acute osseous findings. Bone island right femoral neck. No other significant abnormality. Ordering Provider: Steven HOBBS FINAL REPORT Dictated: 05/14/2023 2:31 pm Hung Webb MD Signed (Electronic Signature): 05/14/2023 2:31 pm Signed by: Hung Webb MD Transcribed by: AUGUSTIN Technologist: DANI Technical Comments Radiation Dose: Ka,r in mGy = na DAP = na Normal [facility] XR Chest 2 Viewson XR Chest 2 Views Exam Date/Time: 05/14/2023 14:09 EDT Reason for Exam: OR 05/13 1600;P.A.T. Report IMPRESSION: No acute radiographic abnormality. EXAMINATION: XR Chest 2 Views Clinical History: P.A.T., OR 05/14 1599 Comparison: None RESULT: No consolidation. No pleural effusion. No pneumothorax. Normal cardiomediastinal silhouette. No acute osseous findings. Ordering Provider: Do Ahmad FINAL REPORT Dictated: 05/14/2023 2:28 pm Hung Webb MD Signed (Electronic Signature): 05/14/2023 2:28 pm Signed by: Hung Webb MD Transcribed by: AUGUSTIN Technologist: DANI Technical Comments Radiation Dose: Ka,r in mGy = na DAP = na Normal [facility] Ambulatory Visit Summaryon 0 05-13-2023 Ambulatory Visit Summary VON LOJA :1975 Visit Date:05/13/2023 Ambulatory Visit Instructions Your Diagnosis Ureteral stone with hydronephrosis Left flank pain History of kidney stones Your Care Team Attending Physician - Steven HOBBS MD Primary Care Physician - Timothy Linares MD This Is Your Medications List Contact prescribing physician if questions or concerns tamsulosin (Flomax 0.4 mg Cap) Procedures Performed None. Discharge Vitals Temperature (Temporal Artery) 36.2 ?C Heart Rate (Peripheral) 74 Respiratory Rate 16 Blood Pressure 112/78 Height 176 cm Height 69 in Weight 83.9 kg Weight 184.58 lb BMI 27.09 What to do next You Need to Schedule the Following Appointments Follow Up with WILL CRUM, PHILIP Bain When: Where: [facility] [address], [place] [id number]- Medications What How Much When Instructions Unchanged tamsulosin (Flomax 0.4 mg Cap) 1 Capsules By Mouth Every day Contact prescribing physician if questions or concerns Medications and Immunizations Administered Not Given influenza virus vaccine, inactivated, Patient Refuses SARS-CoV-2 mRNA (tozinamedmond 5y-11y) vac, Patient Refuses Allergies No Known Medication Allergies Problems Ongoing - Any problem that you are currently receiving treatment for. History of kidney stones Left flank pain Ureteral stone with hydronephrosis Patient Survey You may receive a survey via text or e-mail asking about your office visit. Please share your experience with us by completing your survey. We appreciate your feedback and thank you for choosing us for your care. Education Materials Laser Therapy for Kidney Stones, Care After This sheet gives you information about how to care for yourself after your procedure. Your health care provider may also give you more specific instructions. If you have problems or questions, contact your health care provider. What can I expect after the procedure? After the procedure, it is common to have: ? Pain. ? A burning sensation while urinating. ? Small amounts of blood in your urine. ? A need to urinate frequently. ? Pieces of kidney stone in your urine. ? Mild discomfort when urinating that may be felt in the back. You may experience this if you have a flexible tube (stent) in your ureter. Follow these instructions at home: Medicines ? Take fser-enr-tossmjh and prescription medicines only as told by your health care provider. ? If you were prescribed an antibiotic medicine, take it as told by your health care provider. Do not stop taking the antibiotic even if you start to feel better. ? Ask your health care provider if the medicine prescribed to you: ? Requires you to avoid driving or using heavy machinery. ? Can cause constipation. You may need to take actions to prevent or treat constipation, such as: ? Take jbkq-guj-yfelpsx or prescription medicines. ? Eat foods that are high in fiber, such as beans, whole grains, and fresh fruits and vegetables. ? Limit foods that are high in fat and processed sugars, such as fried or sweet foods. Activity ? Return to your normal activities as told by your health care provider. Ask your health care provider what activities are safe for you. ? Do not drive for 24 hours if you were given a sedative during your procedure. General instructions ? If your health care provider approves, you may take a warm bath to ease discomfort and burning. ? Drink enough fluid to keep your urine pale yellow. Your health care provider may recommend drinking two 8 oz (237 mL) glasses of water per hour for a few hours after your procedure. ? You may be asked to strain your urine to collect any stone fragments that you pass. These fragments may be tested. ? Keep all follow-up visits as told by your health care provider. This is important. If you have a stent, you will need to return to your health care provider to have the stent removed. Contact a health care provider if you: ? Have pain or a burning feeling that lasts more than 2 days. ? Feel nauseous. ? Vomit more and more often. ? Have difficulty urinating. ? Have pain that gets worse or does not get better with medicine. Get help right away if: ? You are unable to urinate, even if your bladder feels full. ? You have: ? Bright red blood or blood clots in your urine. ? More blood in your urine. ? Severe pain or discomfort. ? A fever or shaking chills. ? Abdominal pain. ? Difficulty breathing. ? Swelling in your legs. This information is not intended to replace advice given to you by your health care provider. Make sure you discuss any questions you have with your health care provider. Document Revised: 06/04/2022 Document Reviewed: 09/30/2021 [employer] Patient Education ? 2022 [employer]. Laser Therapy for Kidney Stones Laser (more content not included)... Normal [facility] Consent for Procedure/Surger yon 05-13-2023 Consent for Procedure/Surgery [id number] [facility] Patient Educationon 05-13-19 Patient Education Nephrology Laser Therapy for Kidney Stones, Care After This sheet gives you information about how to care for yourself after your procedure. Your health care provider may also give you more specific instructions. If you have problems or questions, contact your health care provider. What can I expect after the procedure? After the procedure, it is common to have: ? Pain. ? A burning sensation while urinating. ? Small amounts of blood in your urine. ? A need to urinate frequently. ? Pieces of kidney stone in your urine. ? Mild discomfort when urinating that may be felt in the back. You may experience this if you have a flexible tube (stent) in your ureter. Follow these instructions at home: Medicines ? Take yndm-rpo-talhyzz and prescription medicines only as told by your health care provider. ? If you were prescribed an antibiotic medicine, take it as told by your health care provider. Do not stop taking the antibiotic even if you start to feel better. ? Ask your health care provider if the medicine prescribed to you: ? Requires you to avoid driving or using heavy machinery. ? Can cause constipation. You may need to take actions to prevent or treat constipation, such as: ? Take xdyf-sib-jnjyvjp or prescription medicines. ? Eat foods that are high in fiber, such as beans, whole grains, and fresh fruits and vegetables. ? Limit foods that are high in fat and processed sugars, such as fried or sweet foods. Activity ? Return to your normal activities as told by your health care provider. Ask your health care provider what activities are safe for you. ? Do not drive for 24 hours if you were given a sedative during your procedure. General instructions ? If your health care provider approves, you may take a warm bath to ease discomfort and burning. ? Drink enough fluid to keep your urine pale yellow. Your health care provider may recommend drinking two 8 oz (237 mL) glasses of water per hour for a few hours after your procedure. ? You may be asked to strain your urine to collect any stone fragments that you pass. These fragments may be tested. ? Keep all follow-up visits as told by your health care provider. This is important. If you have a stent, you will need to return to your health care provider to have the stent removed. Contact a health care provider if you: ? Have pain or a burning feeling that lasts more than 2 days. ? Feel nauseous. ? Vomit more and more often. ? Have difficulty urinating. ? Have pain that gets worse or does not get better with medicine. Get help right away if: ? You are unable to urinate, even if your bladder feels full. ? You have: ? Bright red blood or blood clots in your urine. ? More blood in your urine. ? Severe pain or discomfort. ? A fever or shaking chills. ? Abdominal pain. ? Difficulty breathing. ? Swelling in your legs. This information is not intended to replace advice given to you by your health care provider. Make sure you discuss any questions you have with your health care provider. Document Revised: 06/04/2022 Document Reviewed: 09/30/2021 [employer] Patient Education ? 2022 [employer] Laser Therapy for Kidney Stones Laser therapy for kidney stones is a procedure to break up small, hard mineral deposits that form in the kidney (kidney stones). The procedure is done using a device that produces a focused beam of light (laser). The laser breaks up kidney stones into pieces that are small enough to be passed out of the body through urination or removed from the body during the procedure. You may need laser therapy if you have kidney stones that are painful or block your urinary tract. This procedure is done by inserting a tube (ureteroscope) into your kidney through the urethral opening. The urethra is the part of the body that drains urine from the bladder. In women, the urethra opens above the vaginal opening. In men, the urethra opens at the tip of the penis. The ureteroscope is inserted through the urethra, and surgical instruments are moved through the bladder and the muscular tube that connects the kidney to the bladder (ureter) until they reach the kidney. Tell a health care provider about: ? Any allergies you have. ? All medicines you are taking, including vitamins, herbs, eye drops, creams, and xxsj-not-tryvqpi medicines. ? Any problems you or family members have had with anesthetic medicines. ? Any blood disorders you have. ? Any surgeries you have had. ? Any medical conditions you have. ? Whether you are or may be . What are the risks? Generally, this is a safe procedure. However, problems may occur, including: ? Infection. ? Bleeding. ? Allergic reactions to medicines. ? Damage to the urethra, bladder, or ureter. ? Urinary tract infection (UTI). ? Narrowing of the urethra (urethral stricture). ? Difficulty passing urine. ? Blockage of the kidney caused by a fragment of kidney st (more content not included)... Normal [facility] Provider Letteron 05-13-2023 Provider Letter May 13, 2023 VON LOJA [address] [place] [id number] : 1975 To Whom It May Concern, Please excuse above patient from work. Date of Illness: On: 05/02/23 (4 hours), 05/09/23 (16 hour shift), 05/13/23 (8 hours) through 05/21/23 (surgery scheduled) May Return to Work On: 05/22/2023 Restrictions: Comments: Please excuse patient for the dates provides due to kidney stones episodes. He is scheduled for surgery on 05/20/23. Sincerely, [facility] Rosa Warner [facility] Urology Office/Clinic Noteon 05-13-2023 Urology Office/Clinic Note Chief Complaint New Pt HPI Staff New Pt. Pt was seen at [facility] on 05/09/23 due to abdominal pain CT SCAN 05/09/23-[facility] Dysuria: denies pain or burning Incomplete bladder emptying: denies Hematuria: denies visible blood Frequency: yes increased on water intake Urgency: denies Nocturia: denies Stream: denies hesitancy, denies weak stream Leaking: denies Post void dripping: denies Wearing pads/ Depends: denies Urge incontinence: denies Stress incontinence: denies Incontinence without Sensory Awareness: denies Abdominal pain: yes left sided pain Flank pain: yes left sided pain Sexual complaints: denies History of Present Illness Tests reviewed: reviewed UA, ED records, CT, blood work I have reviewed the previous health record information and history for this patient from [facility]. I have reviewed and verified the staff HPI to be accurate for this encounter. There have been no associated fever, chills, flank pain, or blood in the urine. Denies any urinary infections since last encounter. Review of Systems PHQ Score Initial Depression Screen Score: 0 SCORE ROS - Provider Constitutional: denies weight loss, denies hot flashes. Eyes: denies eye problems. Gastrointestinal: denies nausea, denies vomiting. Cardiovascular: denies chest pain or angina. Integumentary: no dryness Musculoskeletal: denies musculoskeletal symptoms. ENMT: denies otolaryngeal symptoms. Respiratory: no shortness of breath. Heme/Lymph: denies easy bleeding tendency, denies easy bruising tendency. Psychiatric: no confusion, no anxiety. Genitourinary: See HPI. Physical Exam Vitals & Measurements T: 36.2 ?C(Temporal Artery) HR: 74(Peripheral) RR: 16 BP: 112/78 HT: 69 in HT: 176 cm WT: 83.9 kg WT: 184.58 lb BMI: 27.09 General Appearance: alert, no distress, well nourished, well developed male. Head: normocephalic . Eyes: normal orbit and globe. ENMT: normal examination of external ears. Chest: Lungs CTA, respirations non labored. Cardiovascular: regular rate and rhythm. Abdomen: soft, non distended, no tenderness, no mass or organomegaly, no hernia. Genitourinary: normal scrotum, normal testes, normal urethra, normal epididymis, normal vas deferens/spermatic cord. Flank Pain: none. Bladder: nonpalpable. Penis: normal shaft, normal glans. Lymph Nodes: unremarkable palpation of the cervical area. Skin: warm, dry, no bruising. Psychiatric: cooperative, affect appropriate for age, normal judgement, euthymic mood. Assessment/Plan Von is a 48 yo male new pt following up to [facility] ED visit on 05/09/23 due to abdominal pain. IPSS 0. 1. Ureteral stone with hydronephrosis (N13.2: Hydronephrosis with renal and ureteral calculous obstruction) CT AP wo con 05/09/23 [facility] - 1.1 cm proximal to mid L ureteral stone with associated moderate L hydroureteronephrosis. UA shows trace leuks. Discussed odds of passage extremely low based on size but it is possible. Pain is intermittent but severe when it is present. Discussed management options including cont trying to pass on his own with MET or proceed with surgical intervention. Pt prefers to proceed with surgical intervention since he is currently off work due to the intermittent pain. Discussed surgical intervention options including ESWL if visible on x-ray (less invasive, lower stone free rate) and ureteroscopy/laser litho with possible stent placement (more invasive, higher stone free rate) or discussed staged L stent placement then L laser litho at a later date. Risks and benefits of each discussed. Will schedule L stent placement tomorrow then possibly L URS, L laser litho next week. The procedural risks, benefits, details, and treatment alternatives have been discussed with the patient. These include bleeding, infection, inability to break or retrieve all of the stone, injury to the ureter (the tube which connects the kidney to the bladder), injury to the kidney scarring of the ureter, and need for repeat procedures, among others. Full informed consent has been obtained. Will order General anesthesia. 2. Left flank pain (R10.9: Unspecified abdominal pain) See #1. Had intermittent back pain that started 4 weeks that he first attributed to musculoskeletal pain, now he thinks it was likely stone pain. 3. History of kidney stones (Z87.442: Personal history of urinary calculi) Pt has had two prior stone events, these stones passed faster and with less difficulty. Follow-up With When Contact Information Steven HOBBS MD, URL [facility] [address] [place] [address]- Additional Instructions: schedule L stent placement tomorrow then possibly L URS, L laser litho next week Patient Education Laser Therapy for Kidney Stones, Care After Laser Therapy for Kidney Stones I, Meghann Hanna, personally scribed for Dr. Hobbs on 05/13/2023 09:51:42. . Documentation recorded by the Meghann wing, (more content not included)... [facility] Comment on above: Result Comment: Elec tronically Signed By: Steven HOBBS MD\.br\Date and Time Signed: 05/13/23 09:54 EDT\.br\Electronically Co-Signed By: Meghann Hanna\.br\Date and Time Co-Signed: 05/13/23 09:52 EDT ED Note-Physicianon 05-12-19 ED Note-Physician [id number] 0TIFF [facility] Vital Signs Date Time Vital Sign Value Performing Clinician Facility 09-09-2023 14:48-0400 Blood Pressure Location Steven HOBBS [facility] 09-09-2023 14:48-0400 Body temperature 96.8 [degF] Steven HOBBS [facility] 09-09-2023 14:48-0400 Diastolic blood pressure 68 mm[Hg] Steven HOBBS [facility] 09-09-2023 14:48-0400 Heart rate 64 /min Steven HOBBS [facility] 09-09-2023 14:48-0400 Systolic blood pressure 126 mm[Hg] Steven HOBBS [facility] 05-26-2023 15:09-0400 Blood Pressure Location Steven HOBBS [facility] 05-26-2023 15:09-0400 Diastolic blood pressure 84 mm[Hg] Steven HOBBS [facility] 05-26-2023 15:09-0400 Systolic blood pressure 128 mm[Hg] Steven HOBBS [facility] 05-14-2023 18:17-0400 Heart rate 50 /min Steven HOBBS [facility] 05-14-2023 18:17-0400 SaO2% (BldA) [Mass fraction] 99 % Steven HOBBS [facility] 05-14-2023 18:17-0400 Diastolic blood pressure 83 mm[Hg] Steven HOBBS [facility] 05-14-2023 18:17-0400 Mean blood pressure 100 mm[Hg] Steven HOBBS [facility] 05-14-2023 18:17-0400 Systolic blood pressure 134 mm[Hg] Steven HOBBS [facility] 05-14-2023 18:17-0400 Respiratory rate 18 /min Steven HOBBS [facility] 05-14-2023 17:49-0400 Diastolic blood pressure 82 mm[Hg] Steven HOBBS [facility] 05-14-2023 17:49-0400 Heart rate 60 /min Steven HOBBS [facility] 05-14-2023 17:49-0400 Mean blood pressure 97 mm[Hg] Stevenjayleen HOBBS [facility] 05-14-2023 17:49-0400 Respiratory rate 16 /min Steven HOBBS [facility] 05-14-2023 17:49-0400 SaO2% (BldA) [Mass fraction] 98 % Steven HOBBS [facility] 05-14-2023 17:49-0400 Systolic blood pressure 127 mm[Hg] Stevenjayleen HOBBS [facility] 05-14-2023 17:30-0400 Body temperature 97.88 [degF] Stevenjayleen HOBBS [facility] 05-14-2023 17:30-0400 Diastolic blood pressure 88 mm[Hg] Stevenjayleen HOBBS [facility] 05-14-2023 17:30-0400 Heart rate 74 /min Stevenjayleen HOBBS [facility] 05-14-2023 17:30-0400 Mean blood pressure 98 mm[Hg] Steven HOBBS [facility] 05-14-2023 17:30-0400 Respiratory rate 15 /min Steven HOBBS [facility] 05-14-2023 17:30-0400 SaO2% (BldA) [Mass fraction] 98 % Steven HOBBS [facility] 05-14-2023 17:30-0400 Systolic blood pressure 117 mm[Hg] Steven HOBBS [facility] 05-14-2023 17:15-0400 Mean blood pressure 86 mm[Hg] Steven HOBBS [facility] 05-14-2023 17:15-0400 Respiratory rate 16 /min Steven HOBBS [facility] 05-14-2023 17:03-0400 Blood Pressure Location Steven HOBBS [facility] 05-14-2023 17:03-0400 Body temperature 97.7 [degF] Steven HOBBS [facility] 05-14-2023 17:00-0400 Respiratory rate 1 /min Steven HOBBS [facility] 05-14-2023 16:55-0400 Respiratory rate 21 /min Steven HOBBS [facility] 05-14-2023 14:25-0400 Heart rate 72 /min Steven HOBBS [facility] 05-14-2023 14:22-0400 Mean blood pressure 95 mm[Hg] Steven HOBBS [facility] 05-14-2023 14:21-0400 Body temperature 98.06 [degF] Steven HOBBS [facility] 05-14-2023 14:21-0400 Mean blood pressure 97 mm[Hg] Steven HOBBS [facility] 05-13-2023 09:11-0400 Blood Pressure Location Steven HOBBS [facility] 05-13-2023 09:11-0400 Body temperature 97.16 [degF] Steven HOBBS [facility] 05-13-2023 09:11-0400 Diastolic blood pressure 78 mm[Hg] Steven HOBBS [facility] 05-13-2023 09:11-0400 Heart rate 74 /min Steven HOBBS [facility] 05-13-2023 09:110400 Respiratory rate 16 /min Steven HOBBS [facility] 05-13-2023 09:0400 Systolic blood pressure 112 mm[Hg] Steven HOBBS [facility] Encounters Encounter Date Encounter Type Care Provider Facility Start: 09-05-2024 ambulatory Steven HOBBS Facili ty:[facility] Start: 09-09-2023 End: 09-09-2023 ambulatory Steven R WILL Facility:[facility] Start: 09-09-2023 End: 09-09-2023 Patient encounter procedure Steven HOBBS [facility] Start: 07-20-2023 End: 07-20-2023 ambulatory Steven HOBBS [place] [place]: 07-20-2023 End: 07-20-2023 Lab Drop off Steven HOBBS [facility] Start: 05-26-2023 End: 05-26-2023 ambulatory Steven HOBBS Facility:[facility] Start: 05-26-2023 End: 05-26-2023 Patient encounter procedure Steven HOBBS [facility] Start: 05-20-2023 End: 05-20-2023 ambulatory Steven Hobbs [facility] Work Phone: Start: 05-20-2023 End: 05-20-2023 Departed Referred MD Steven Hobbs Work Phone: [facility] [place] Work Phone: Start: 05-20-2023 End: 05-20-2023 ambulatory Steven HOBBS Facility:[id number] Start: 05-14-2023 End: 05-14-2023 Admission to same day surgery center Steven HOBBS [facility] Start: 05-14-2023 End: 05-14-2023 ambulatory Steven HOBBS [place] [place]: 05-13-2023 End: 05-13-2023 ambulatory Stevenjayleen HOBBS Facility: [facility] Start: 05-13-2023 End: 05-13-2023 Patient encounter procedure Steven HOBBS [facility] Start: 05-11-2023 ambulatory Stevenjayleen HOBBS Facility : [place] Procedures Date Procedure Procedure Detail Performing Clinician Start: 05-26-2023 Removal of stent Jose k WILL Start: 05-26-2023 Transurethral cystoscopy Stevenjayleen HOBBS Start: 05-14-2023 Ureteroscopy Steven RENEE Appendectomy Steven HOBBS Arthrs knee abrasion arthrp/astrochemist drlg/microfx Steven HOBBS None (qualifier value) Eddie allen WILL Plan of Treatment Date Care Activity Detail Author Start: 09-07-2023 ambulatory Ambulatory Facility:[facility] Start: 05-20-2023 [facility] Bilirubin [facility] Body weight [facility] Calcium carbonate/To cassandra in Stone [facility] Calcium hydrogen brian sphate dihydrate/Total in [facility] Calcium oxalate monohydrate/Total in [facility] Calcium phosphate level [facility] Calculus analysis wi th calculus photography [Interpretation] in [facility] Calculus analysis, qualitative [facility] Calculus analysis, quantitative [facility] Calculus analysis, quantitative, infrared spectroscopy [facility] Cellular material [M ass/mass] of Stone by Estimated [facility] Cholesterol [Mass/vo lume] in Serum or Plasma [facility] Cystine measurement [facility] Determination of nita culus chemical composition [facility] Evaluation procedure [facility] Hydroxyapatite [Ener gy Difference] in 24 hour Urine [facility] Laboratory data interpretation [facility] Newberyite/Total in Stone Fi relands [facility] Specimen source subject [Type] [facility] Triamterene measurement [facility] Triple phosphate/Total in Stone [facility] Immunizations Immunization Date Immunization Notes Care Provider Malka cruz NEGATED: Highlighted row has not occurred!05-13-2023 influenza virus vaccine, unspecified formulation Steven HOBBS [facility] NEGATED: Highlighted row has not occurred!05-13-2023 SARS-CoV-2 mRNA (tozinameran 5y-11y) vaccine Steven HOBBS [facility] Payers Date Payer Category Payer Self-pay [id number] 2023 Unknown [id number] 1973 Unknown [id number] 2.16.8 [id number] 1973 Unknown [id number] 2.16.8 [id number] 1973 Unknown [id number] 2.16.8 [id number] 1973 Unknown [id number] 2.16.8 [id number] 1973 Unknown [id number] 2.16.8 [id number] 1973 Unknown [id number] 2.16.8 [id number] 1973 Unknown [id number] 2.16.8 [id number] 1973 Unknown [id number] 2.16.8 [id number] 1973 Unknown [id number] 2.16.8 [id number] Unknown [id number] 2.16.8 [id number] Social History Date Type Detail Facility Start: 05-13-2023 End: 09-09-2023 Tobacco smoking status Ex-smoker (finding) [facility] Tobacco smoking status Never [facility] Sex Assigned At Male [facility] Start: 05-27-2014 Tobacco smoking stat [facility] Never smoked tobacco (finding) [facility] Start: 1975 Sex Assigned At Male F [facility] Medical Equipment Procedure Code Equipment Code Equipment Origin al Text Equipment Identifier Dates CYSTOSCOPY RETROGRADE STENT INSERTION Steven HOBBS MD 05/14/23 Unknown Ureter L FDA Start: 05-14-2023 CYSTOSCOPY RETROGRADE STENT INSERTION Steven HOBBS MD 05/14/23 Unknown Ureter L FDA Start: 05-14-2023 CYSTOSCOPY RETROGRADE STENT INSERTION Steven HOBBS MD 05/14/23 Unknown Ureter L FDA Start: 05-14-2023 CYSTOSCOPY RETROGRADE STENT INSERTION Steven HOBBS MD 05/14/23 Unknown Ureter L FDA Start: 05-14-2023 CYSTOSCOPY RETROGRADE STENT INSERTION Steven HOBBS MD 05/14/23 Unknown Ureter L FDA Start: 05-14-2023 Functional Status Date Assessment Result Facility 09-09-2023 Functional Status N/A [facility] 05-26-2023 Functional Status N/A [facility] 05-14-2023 Functional Status No [facility] 05-13-2023 Functional Status N/A [facility] Clinical Notes 05-13-2023 to 09-09-2023 Note Date & Type Note Facility 09-09-2023 Hospital Discharge instructions Patient Education 09/09/2023 15:52:25 Dietary Guidelines to Help Prevent Kidney Stones Dietary Guidelines to Help Prevent Kidney Stones Kidney stones are deposits of minerals and salts that form inside your kidneys. Your risk of developing kidney stones may be greater depending on your diet, your lifestyle, the medicines you take, and whether you have certain medical conditions. Most people can lower their risks of developing kidney stones by following these dietary guidelines. Your dietitian may give you more specific instructions depending on your overall health and the type of kidney stones you tend to develop. What are tips for following this plan? Reading food labels Choose foods with no salt added or low-salt labels. Limit your salt (sodium) intake to less than 1,500 mg a day. Choose foods with calcium for each meal and snack. Try to eat about 300 mg of calcium at each meal. Foods that contain 200 500 mg of calcium a serving include: ?8 oz (237 mL) of milk, vjgfphe-eolqmfenjoxj-aeviw milk, and calcium-fortifiedfruit juice. Calcium-fortified means that calcium has been added to these drinks. ?8 oz (237 mL) of kefir, yogurt, and soy yogurt. ?4 oz (114 g) of tofu. ?1 oz (28 g) of cheese. ?1 cup (150 g) of dried figs. ?1 cup (91 g) of cooked broccoli. ?One 3 oz (85 g) can of sardines or mackerel. Most people need 1,000 1,500 mg of calcium a day. Talk to your dietitian about how much calcium is recommended for you. Shopping Buy plenty of fresh fruits and vegetables. Most people do not need to avoid fruits and vegetables, even if these foods contain nutrients that may contribute to kidney stones. When shopping for convenience foods, choose: ?Whole pieces of fruit. ?Pre-made salads with dressing on the side. ?Low-fat fruit and yogurt smoothies. Avoid buying frozen meals or prepared deli foods. These can be high in sodium. Look for foods with live cultures, such as yogurt and kefir. Choose high-fiber grains, such as whole-wheat breads, oat bran, and wheat cereals. Cooking Do not add salt to food when cooking. Place a salt shaker on the table and allow each person to add their own salt to taste. Use vegetable protein, such as beans, textured vegetable protein (TVP), or tofu, instead of meat in pasta, casseroles, and soups. Meal planning Eat less salt, if told by your dietitian. To do this: ?Avoid eating processed or pre-made food. ?Avoid eating fast food. Eat less animal protein, including cheese, meat, poultry, or fish, if told by your dietitian. To do this: ?Limit the number of times you have meat, poultry, fish, or cheese each week. Eat a diet free of meat at least 2 days a week. ?Eat only one serving each day of meat, poultry, fish, or seafood. ?When you prepare animal proteins, cut pieces into small portion sizes. For most meat and fish, one serving is about the size of the palm of your hand. Eat at least five servings of fresh fruits and vegetables each day. To do this: ?Keep fruits and vegetables on hand for snacks. ?Eat one piece of fruit or a handful of berries with breakfast. ?Have a salad and fruit at lunch. ?Have two kinds of vegetables at dinner. You may be told to limit foods that are high in a substance called oxalate. These include: ?Spinach (cooked), rhubarb, beets, sweet potatoes, and Norwegian chard. ?Peanuts. ?Potato chips, moroccan fries, and baked potatoes with skin on. ?Nuts and nut products. ?Chocolate. If you regularly take a diuretic medicine, make sure to eat at least 1 or 2 servings of fruits or vegetables that are high in potassium each day. These include: ?Avocado. ?Banana. ?Chaves, prune, carrot, or tomato juice. ?Baked potato. ?Cabbage. ?Beans and split peas. Lifestyle Drink enough fluid to keep your urine pale yellow. This is the most important thing you can do. Spread your fluid intake throughout the day. If you drink alcohol: ?Limit how much you have to: ?0 1 drink a day for women who are not . ?0 2 drinks a day for men. ?Know how much alcohol is in your drink. In the [place] one drink equals one 12 oz bottle of beer (355 mL), one 5 oz glass of wine (148 mL), or one 1 oz glass of hard liquor (44 mL). Lose weight if told by your health care provider. Work with your dietitian to find an eating plan and weight loss strategies that work best for you. General information Talk to your health care provider and dietitian about taking daily supplements. Depending on your health and the cause of your kidney stones, you may be told: ?Do not take high-dose supplements of vitamin C (1,000 mg a day or more). ?To take a calcium supplement. ?To take a daily probiotic supplement. ?To take other supplements such as magnesium, fish oil, or vitamin B6. Take ukas-nkw-dnhqpwk and prescription medicines only as told by your health care provider. These include supplements. What foods should I limit? Limit your intake of the following foods, or eat them as told by your dietitian. Vegetables Spinach. Rhubarb. Beets. Canned vegetables. Pickles. Olives. Baked potatoes with skin. Grains Wheat bran. Baked goods. Salted crackers. Cereals high in sugar. Meats and other proteins Nuts. Nut butters. Large portions of meat, poultry, or fish. Salted, precooked, or cured meats, such as sausages, meat loaves, and hot dogs. Dairy Cheeses. Beverages Regular soft drinks. Regular vegetable juice. Seasonings and condiments Seasoning blends with salt. Salad dressings. Soy sauce. Ketchup. Barbecue sauce. Other foods Canned soups. Canned pasta sauce. Casseroles. Pizza. Lasagna. Frozen meals. Potato chips. Ugandan fries. The items listed above may not be a complete list of foods and beverages you should limit. Contact a dietitian for more information. What foods should I avoid? Talk to your dietitian about specific foods you should avoid based on the type of kidney stones you have and your overall health. Fruits Grapefruit. The item listed above may not be a complete list of foods and beverages you should avoid. Contact a dietitian for more information. Summary Kidney stones are deposits of minerals and salts that form inside your kidneys. You can lower your risk of kidney stones by making changes to your diet. The most important thing you can do is drink enough fluid. Drink enough fluid to keep your urine pale yellow. Talk to your dietitian about how much calcium you should have each day, and eat less salt and animal protein as told by your dietitian. This information is not intended to replace advice given to you by your health care provider. Make sure you discuss any questions you have with your health care provider. Document Revised: 05/08/2022 Document Reviewed: 05/08/2022 [employer] Patient Education 2022 [employer]. Follow Up Care 08/25/2023 13:49:58 With:WILL CRUM, Steven Vale, URL Address: [facility] [address], [place] [address]- When: Unknown [facility] 09-09-2023 Note Patient Education Nephrology Dietary Guidelines to Help Prevent Kidney Stones Kidney stones are deposits of minerals and salts that form inside your kidneys. Your risk of developing kidney stones may be greater depending on your diet, your lifestyle, the medicines you take, and whether you have certain medical conditions. Most people can lower their risks of developing kidney stones by following these dietary guidelines. Your dietitian may give you more specific instructions depending on your overall health and the type of kidney stones you tend to develop. What are tips for following this plan? Reading food labels ? Choose foods with no salt added or low-salt labels. Limit your salt (sodium) intake to less than 1,500 mg a day. ? Choose foods with calcium for each meal and snack. Try to eat about 300 mg of calcium at each meal. Foods that contain 200?500 mg of calcium a serving include: ? 8 oz (237 mL) of milk, iytgxph-moyvbzvnruyh-qwnze milk, and calcium-fortifiedfruit juice. Calcium-fortified means that calcium has been added to these drinks. ? 8 oz (237 mL) of kefir, yogurt, and soy yogurt. ? 4 oz (114 g) of tofu. ? 1 oz (28 g) of cheese. ? 1 cup (150 g) of dried figs. ? 1 cup (91 g) of cooked broccoli. ? One 3 oz (85 g) can of sardines or mackerel. Most people need 1,000?1,500 mg of calcium a day. Talk to your dietitian about how much calcium is recommended for you. Shopping ? Buy plenty of fresh fruits and vegetables. Most people do not need to avoid fruits and vegetables, even if these foods contain nutrients that may contribute to kidney stones. ? When shopping for convenience foods, choose: ? Whole pieces of fruit. ? Pre-made salads with dressing on the side. ? Low-fat fruit and yogurt smoothies. ? Avoid buying frozen meals or prepared deli foods. These can be high in sodium. ? Look for foods with live cultures, such as yogurt and kefir. ? Choose high-fiber grains, such as whole-wheat breads, oat bran, and wheat cereals. Cooking ? Do not add salt to food when cooking. Place a salt shaker on the table and allow each person to add their own salt to taste. ? Use vegetable protein, such as beans, textured vegetable protein (TVP), or tofu, instead of meat in pasta, casseroles, and soups. Meal planning ? Eat less salt, if told by your dietitian. To do this: ? Avoid eating processed or pre-made food. ? Avoid eating fast food. ? Eat less animal protein, including cheese, meat, poultry, or fish, if told by your dietitian. To do this: ? Limit the number of times you have meat, poultry, fish, or cheese each week. Eat a diet free of meat at least 2 days a week. ? Eat only one serving each day of meat, poultry, fish, or seafood. ? When you prepare animal proteins, cut pieces into small portion sizes. For most meat and fish, one serving is about the size of the palm of your hand. ? Eat at least five servings of fresh fruits and vegetables each day. To do this: ? Keep fruits and vegetables on hand for snacks. ? Eat one piece of fruit or a handful of berries with breakfast. ? Have a salad and fruit at lunch. ? Have two kinds of vegetables at dinner. ? You may be told to limit foods that are high in a substance called oxalate. These include: ? Spinach (cooked), rhubarb, beets, sweet potatoes, and Norwegian chard. ? Peanuts. ? Potato chips, moroccan fries, and baked potatoes with skin on. ? Nuts and nut products. ? Chocolate. ? If you regularly take a diuretic medicine, make sure to eat at least 1 or 2 servings of fruits or vegetables that are high in potassium each day. These include: ? Avocado. ? Banana. ? Chaves, prune, carrot, or tomato juice. ? Baked potato. ? Cabbage. ? Beans and split peas. Lifestyle ? Drink enough fluid to keep your urine pale yellow. This is the most important thing you can do. Spread your fluid intake throughout the day. ? If you drink alcohol: ? Limit how much you have to: ? 0?1 drink a day for women who are not . ? 0?2 drinks a day for men. ? Know how much alcohol is in your drink. In the [place] one drink equals one 12 oz bottle of beer (355 mL), one 5 oz glass of wine (148 mL), or one 1? oz glass of hard liquor (44 mL). ? Lose weight if told by your health care provider. Work with your dietitian to find an eating plan and weight loss strategies that work best for you. General information ? Talk to your health care provider and dietitian about taking daily supplements. Depending on your health and the cause of your kidney stones, you may be told: ? Do not take high-dose supplements of vitamin C (1,000 mg a day or more). ? To take a calcium supplement. ? To take a daily probiotic supplement. ? To take other supplements such as magnesium, fish oil, or vitamin B6. ? Take ftpd-kzv-tivjmpc and prescription medicines only as told by your health care provider. These include suppleme (more content not included)... [facility] 05-26-2023 Hospital Discharge instructions Patient Education 05/26/2023 16:16:51 Kidney Stones, Rmtq-ow-Lscs Kidney Stones Kidney stones are rock-like masses that form inside of the kidneys. Kidneys are organs that make pee (urine). A kidney stone may move into other parts of the urinary tract, including: The tubes that connect the kidneys to the bladder (ureters). The bladder. The tube that carries urine out of the body (urethra). Kidney stones can cause very bad pain and can block the flow of pee. The stone usually leaves your body (passes) through your pee. You may need to have a doctor take out the stone. What are the causes? Kidney stones may be caused by: A condition in which certain glands make too much parathyroid hormone (primary hyperparathyroidism). A buildup of a type of crystals in the bladder made of a chemical called uric acid. The body makes uric acid when you eat certain foods. Narrowing (stricture) of one or both of the ureters. A kidney blockage that you were born with. Past surgery on the kidney or the ureters, such as gastric bypass surgery. What increases the risk? You are more likely to develop this condition if: You have had a kidney stone in the past. You have a family history of kidney stones. You do not drink enough water. You eat a diet that is high in protein, salt (sodium), or sugar. You are overweight or very overweight (obese). What are the signs or symptoms? Symptoms of a kidney stone may include: Pain in the side of the belly, right below the ribs (flank pain). Pain usually spreads (radiates) to the groin. Needing to pee often or right away (urgently). Pain when going pee (urinating). Blood in your pee (hematuria). Feeling like you may vomit (nauseous). Vomiting. Fever and chills. How is this treated? Treatment depends on the size, location, and makeup of the kidney stones. The stones will often pass out of the body through peeing. You may need to: Drink more fluid to help pass the stone. In some cases, you may be given fluids through an IV tube put into one of your veins at the hospital. Take medicine for pain. Make changes in your diet to help keep kidney stones from coming back. Sometimes, medical procedures are needed to remove a kidney stone. This may involve: A procedure to break up kidney stones using a beam of light (laser) or shock waves. Surgery to remove the kidney stones. Follow these instructions at home: Medicines Take fuzl-dvz-pgodmvv and prescription medicines only as told by your doctor. Ask your doctor if the medicine prescribed to you requires you to avoid driving or using heavy machinery. Eating and drinking Drink enough fluid to keep your pee pale yellow. You may be told to drink at least 8 10 glasses of water each day. This will help you pass the stone. If told by your doctor, change your diet. This may include: ?Limiting how much salt you eat. ?Eating more fruits and vegetables. ?Limiting how much meat, poultry, fish, and eggs you eat. Follow instructions from your doctor about eating or drinking restrictions. General instructions Collect pee samples as told by your doctor. You may need to collect a pee sample: ?24 hours after a stone comes out. ?8 12 weeks after a stone comes out, and every 6 12 months after that. Strain your pee every time you pee (urinate), for as long as told. Use the strainer that your doctor recommends. Do not throw out the stone. Keep it so that it can be tested by your doctor. Keep all follow-up visits as told by your doctor. This is important. You may need follow-up tests. How is this prevented? To prevent another kidney stone: Drink enough fluid to keep your pee pale yellow. This is the best way to prevent kidney stones. Eat healthy foods. Avoid certain foods as told by your doctor. You may be told to eat less protein. Stay at a healthy weight. Where to find more information National Kidney Foundation (NKF): www.kidney.org [facility] (UCF): www.urologyhealth.org Contact a doctor if: You have pain that gets worse or does not get better with medicine. Get help right away if: You have a fever or chills. You get very bad pain. You get new pain in your belly (abdomen). You pass out (faint). You cannot pee. Summary Kidney stones are rock-like masses that form inside of the kidneys. Kidney stones can cause very bad pain and can block the flow of pee. The stones will often pass out of the body through peeing. Drink enough fluid to keep your pee pale yellow. This information is not intended to replace advice given to you by your health care provider. Make sure you discuss any questions you have with your health care provider. Document Revised: 09/30/2021 Document Reviewed: 09/30/2021 [employer] Patient Education 2022 [employer]. Follow Up Care 05/26/2023 09:44:42 With:WILL CRUM, Steven Vale, URL Address: [facility] [address], [place] [address]- [phone] When: Unknown Comments:3 mos w/ KUB and met workup [facility] 05-14-2023 Hospital Discharge instructions Patient Education 05/14/2023 18:05:09 Aydj-Fpgl-bb Utereroscopy,Lithotripsy, Stone Extraction, Stent Placement(CUSTOM) [facility] [place], [place] Dr. Mainor Durand Post-operative Instructions for Ureteroscopy, Laser Lithotripsy, Stone Extraction and Stent Placement There are no incisions or dressings to be concerned with, as the procedure was performed inside the urinary system. For 24 hours after surgery: No driving or operating machinery Do not make important decisions Do not consume alcohol, sleeping pills Stent Placement You may have a stent which spans the distance between your bladder and your kidney, allowing urine to pass through. It prevents blockage from swelling, kidney stones in ureter (tube connecting the kidney to the bladder), or scars. The presence of the stent may cause: Back or side pain, especially with urination Frequent or urgent urination Bladder pressure or pain Blood in urine You may pass stone debris or small blood clots, which is expected. Drinking plenty of water to dilute the urine may help. If there is a thread coming out of urinary channel, be careful not to accidently pull on this, as it is attached to the stent. The stent will most likely be removed in the office during a short procedure in which a scope is placed into the bladder, the stent is grasped and removed. At other times the stent may need to stay longer, either in preparation for other procedures or for other reasons. If it is to remain termite treater helper, however, changes of the stent are required (about every 3-4 months). Diet You may resume your normal diet, but you may want to start slowly and avoid spicy food, caffeine, carbonated beverages and alcohol, especially if you have a stent. Your diet and fluid intake may make irritation from the stent worse. Activity You may resume your normal activities, although you should take it easy on the day of the procedure. Minimizing activity may decrease the back discomfort and irritation from the stent, if present. Medications You may resume your home medications unless instructed otherwise. Hold aspirin, ibuprofen, Coumadin (warfarin) and other blood thinners until your office visit (we will discuss when to resume these medications) Take your prescribed medications as directed, including your antibiotics. You may also be given a prescription for pain medicine or medicines to help with the bladder irritation from stent, if present. Things to watch for which would require an Emergency Room Visit (or call 911) (This is not a complete list) Fever over 101.5 degrees, with or without chills Severe bleeding Severe drug reactions with itching, hives, rash, or severe flank pain Tenderness or swelling or the calves, chest pain, or shortness of breath Please call the office to arrange for your post-operative appointment (with XRAY) [phone] 05/14/2023 18:04:57 Post Op Patient Instructions - FT (Custom) (CUSTOM) Follow Up Care 05/13/2023 14:17:03 With:Steven HOBBS Address: [address] [place], [place] [id number] Business (1) When: Unknown Comments:Office will call for neck [facility] 05-13-2023 Hospital Discharge instructions Patient Education 05/13/2023 09:48:00 Laser Therapy for Kidney Stones, Care After Laser Therapy for Kidney Stones, Care After This sheet gives you information about how to care for yourself after your procedure. Your health care provider may also give you more specific instructions. If you have problems or questions, contact your health care provider. What can I expect after the procedure? After the procedure, it is common to have: Pain. A burning sensation while urinating. Small amounts of blood in your urine. A need to urinate frequently. Pieces of kidney stone in your urine. Mild discomfort when urinating that may be felt in the back. You may experience this if you have a flexible tube (stent) in your ureter. Follow these instructions at home: Medicines Take hlgi-btm-wddvzrb and prescription medicines only as told by your health care provider. If you were prescribed an antibiotic medicine, take it as told by your health care provider. Do not stop taking the antibiotic even if you start to feel better. Ask your health care provider if the medicine prescribed to you: ?Requires you to avoid driving or using heavy machinery. ?Can cause constipation. You may need to take actions to prevent or treat constipation, such as: ?Take ttvm-ici-ayyaffh or prescription medicines. ?Eat foods that are high in fiber, such as beans, whole grains, and fresh fruits and vegetables. ?Limit foods that are high in fat and processed sugars, such as fried or sweet foods. Activity Return to your normal activities as told by your health care provider. Ask your health care provider what activities are safe for you. Do not drive for 24 hours if you were given a sedative during your procedure. General instructions If your health care provider approves, you may take a warm bath to ease discomfort and burning. Drink enough fluid to keep your urine pale yellow. Your health care provider may recommend drinking two 8 oz (237 mL) glasses of water per hour for a few hours after your procedure. You may be asked to strain your urine to collect any stone fragments that you pass. These fragments may be tested. Keep all follow-up visits as told by your health care provider. This is important. If you have a stent, you will need to return to your health care provider to have the stent removed. Contact a health care provider if you: Have pain or a burning feeling that lasts more than 2 days. Feel nauseous. Vomit more and more often. Have difficulty urinating. Have pain that gets worse or does not get better with medicine. Get help right away if: You are unable to urinate, even if your bladder feels full. You have: ?Bright red blood or blood clots in your urine. ?More blood in your urine. ?Severe pain or discomfort. ?A fever or shaking chills. ?Abdominal pain. ?Difficulty breathing. ?Swelling in your legs. This information is not intended to replace advice given to you by your health care provider. Make sure you discuss any questions you have with your health care provider. Document Revised: 06/04/2022 Document Reviewed: 09/30/2021 [employer] Patient Education 2022 [employer]. 05/13/2023 09:47:59 Laser Therapy for Kidney Stones Laser Therapy for Kidney Stones Laser therapy for kidney stones is a procedure to break up small, hard mineral deposits that form in the kidney (kidney stones). The procedure is done using a device that produces a focused beam of light (laser). The laser breaks up kidney stones into pieces that are small enough to be passed out of the body through urination or removed from the body during the procedure. You may need laser therapy if you have kidney stones that are painful or block your urinary tract. This procedure is done by inserting a tube (ureteroscope) into your kidney through the urethral opening. The urethra is the part of the body that drains urine from the bladder. In women, the urethra opens above the vaginal opening. In men, the urethra opens at the tip of the penis. The ureteroscope is inserted through the urethra, and surgical instruments are moved through the bladder and the muscular tube that connects the kidney to the bladder (ureter) until they reach the kidney. Tell a health care provider about: Any allergies you have. All medicines you are taking, including vitamins, herbs, eye drops, creams, and zxjk-zmo-boxxkco medicines. Any problems you or family members have had with anesthetic medicines. Any blood disorders you have. Any surgeries you have had. Any medical conditions you have. Whether you are or may be . What are the risks? Generally, this is a safe procedure. However, problems may occur, including: Infection. Bleeding. Allergic reactions to medicines. Damage to the urethra, bladder, or ureter. Urinary tract infection (UTI). Narrowing of the urethra (urethral stricture). Difficulty passing urine. Blockage of the kidney caused by a fragment of kidney stone. What happens before the procedure? Medicines Ask your health care provider about: ?Changing or stopping your regular medicines. This is especially important if you are taking diabetes medicines or blood thinners. ?Taking medicines such as aspirin and ibuprofen. These medicines can thin your blood. Do not take these medicines unless your health care provider tells you to take them. ?Taking mctt-dut-rryjvyx medicines, vitamins, herbs, and supplements. Eating and drinking Follow instructions from your health care provider about eating and drinking, which may include: 8 hours before the procedure stop eating heavy meals or foods, such as meat, fried foods, or fatty foods. 6 hours before the procedure stop eating light meals or foods, such as toast or cereal. 6 hours before the procedure stop drinking milk or drinks that contain milk. 2 hours before the procedure stop drinking clear liquids. Staying hydrated Follow instructions from your health care provider about hydration, which may include: Up to 2 hours before the procedure you may continue to drink clear liquids, such as water, clear fruit juice, black coffee, and plain tea. General instructions You may have a physical exam before the procedure. You may also have tests, such as imaging tests and blood or urine tests. If your ureter is too narrow, your health care provider may place a soft, flexible tube (stent) inside of it. The stent may be placed days or weeks before your laser therapy procedure. Plan to have someone take you home from the hospital or clinic. If you will be going home right after the procedure, plan to have someone stay with you for 24 hours. Do not use any products that contain nicotine or tobacco for at least 4 weeks before the procedure. These products include cigarettes, e-cigarettes, and chewing tobacco. If you need help quitting, ask your health care provider. Ask your health care provider: ?How your surgical site will be marked or identified. ?What steps will be taken to help prevent infection. These may include: ?Removing hair at the surgery site. ?Washing skin with a germ-killing soap. ?Taking antibiotic medicine. What happens during the procedure? An IV will be inserted into one of your veins. You will be given one or more of the following: ?A medicine to help you relax (sedative). ?A medicine to numb the area (local anesthetic). ?A medicine to make you fall asleep (general anesthetic). A ureteroscope will be inserted into your urethra. The ureteroscope will send images to a video screen in the operating room to guide your surgeon to the area of your kidney that will be treated. A small, flexible tube will be threaded through the ureteroscope and into your bladder and ureter, up to your kidney. The laser device will be inserted into your kidney through the tube. Your surgeon will pulse the laser on and off to break up kidney stones. A surgical instrument that has a tiny wire basket may be inserted through the tube into your kidney to remove the pieces of broken kidney stone. The procedure may vary among health care providers and hospitals. What happens after the procedure? Your blood pressure, heart rate, breathing rate, and blood oxygen level will be monitored until you leave the hospital or clinic. You will be given pain medicine as needed. You may continue to receive antibiotics. You may have a stent temporarily placed in your ureter. Do not drive for 24 hours if you were given a sedative during your procedure. You may be given a strainer to collect any stone fragments that you pass in your urine. Your health care provider may have these tested. This information is not intended to replace advice given to you by your health care provider. Make sure you discuss any questions you have with your health care provider. Document Revised: 06/04/2022 Document Reviewed: 09/30/2021 [employer] Patient Education 2022 [employer] Follow Up Care 05/11/2023 17:06:33 With:Steven HOBBS MD, URL Address: [facility] [address], [place] [address]- When: Unknown [facility] Evaluation + Plan note Future Appointments Appointment Date:05/14/2023 04:00:00 PM Scheduled Provider: Location:[facility] Appointment Type:Surgery FT [facility] Evaluation + Plan note Future Appointments Appointment Date:09/07/2023 02:30:00 PM Scheduled Provider:Steven HOBBS MD Location:[facility] Appointment Type:URO Office Visit [facility] Evaluation + Plan note Future Appointments Appointment Date:09/07/2023 02:30:00 PM Scheduled Provider:Steven HOBBS MD Location:[facility] Appointment Type:URO Office Visit Diagnostic Tests PendingCalculi Analysis Urinary 07/20/23 [facility] Evaluation + Plan note Future Appointments Appointment Date:09/05/2024 03:00:00 PM Scheduled Provider:Steven HOBBS MD Location:[facility] Appointment Type:URO Office Visit Diagnostic Tests PendingElectrolyte Panel 09/09/23 [facility] Evaluation note No assessment inform ation available [facility] Work Phone: Hospital course Narrative No data available for this section [facility] Hospital Discharge instructions No data available for this section [facility] Progress note No data available for this section [facility] Chief Complaint and Reason for Visit Chief Complaint Hydronephrosis with renal ureteral calculous obstr Advance Directives No Advanced Directives Records Found Advance Directive Response Recorded Date/ Time Advance Directives No February 24, 2020 2:42pm Summary Purpose Family History No Family History Records Found Additional Source Comments Patient Care team informatio n (unrecognized section and content) Team Status: Inactive Member Role Status Dates Steven Hobbs MD Attending Provider Active St art: May 20, 2023 End: May 20, 2023 Goals (unrecognized section and content) Goals may be documented in a n alternate section (unrecognized sect ion and content) No Status Records FoundNo Status Records FoundNo Status Records Found INFORMATION SOURCE (unrecogn ized section and content) DATE CREATED AUTHOR 06/06/2023 [facility] DATE CREATED AUTHOR AUTHOR'S ORGANIZ ATION [facility]2023 [facility] DATE CREATED AUTHOR AUTHOR'S ORGANIZ ATION 09/11/2023 [facility] FOR RECORDS PERTAINING TO PATIENTS WHO ARE OR HAVE BEEN ENROLLED IN A CHEMICAL DEPENDENCY/SUBSTANCEABUSE PROGRAM, SOME INFORMATION MAY BE OMITTED. This clinical summary was aggregated from multiple sources. Caution should be exercised in using it in the provision of clinical care. This summary normalizes information from multiple sources, and as a consequence, information in this document may materially change the coding, format and clinical context of patient data. In addition, data may be omitted in some cases. CLINICAL DECISIONS SHOULD BE BASED ON THE PRIMARY CLINICAL RECORDS. [facility] [employer] [facility]. provides no warranty or guarantee of the accuracy or completeness of information in this document.
[2024-06-24 21:17] VITALS: BP 146/87; PULSE 68; TEMP 36.7; O2SAT 96
== END 2024-06-24 21:18 | disposition home or self-care (01) ==
PROVIDERS: Emergency Provider Internal Medicine; PCP Family Medicine
DX: K59.00 Constipation, unspecified (principal); Z87.442 Personal history of urinary calculi
CPT/HCPCS: 74018; 99283